=== PATIENT | male | born 1945 | race Caucasian/White ===

== ENCOUNTER 2016-09-24 10:14 | Outpatient (CLI) | payer MEDICARE, OTHER | END 2016-09-24 10:15 | disposition home or self-care (01) | DX: R73.01 Impaired fasting glucose (principal); R97.20 Elevated prostate specific antigen [PSA]; I10 Essential (primary) hypertension; I71.1 Thoracic aortic aneurysm, ruptured; I71.01 Dissection of thoracic aorta ==

== ENCOUNTER 2016-11-15 07:55 | Outpatient (CLI) | payer MEDICARE, OTHER ==
[2016-11-15 11:51] LABS: BASOPHILS % (AUTO) 0.8 %; EOSINOPHILS # (AUTO) 0.2 10^3/uL (0.0-0.7); EOSINOPHILS % (AUTO) 4.2 %; HCT - HEMATOCRIT 37.4 % (42.0-52.0); HGB - HEMOGLOBIN 12.5 g/dL (14.0-18.0); LYMPHOCYTES # (AUTO) 1.3 10^3/uL (1.5-3.5); LYMPHOCYTES % (AUTO) 25.5 %; MEAN CORPUSCULAR HEMOGLOBIN 29.7 pg (27.0-31.0); MEAN CORPUSCULAR HGB CONC 33.5 g/dL (32.0-36.0); MEAN CORPUSCULAR VOLUME 88.6 fL (80.0-94.0); MEAN PLATELET VOLUME 8.7 fL (7.4-11.4); MONOCYTES # (AUTO) 0.4 10^3/uL (0.0-1.0); MONOCYTES % (AUTO) 7.7 %; NEUTROPHILS # (AUTO) 3.3 10^3/uL (1.5-6.6); NEUTROPHILS % (AUTO) 61.8 %; RED BLOOD COUNT 4.22 10^6/uL (4.70-6.10); RED CELL DISTRIBUTION WIDTH 14.4 % (12.0-15.0); UNCORRECTED WHITE BLOOD COUNT 5.3 x10^3/uL; WHITE BLOOD COUNT 5.3 x10^3/uL (4.8-10.8)
[2016-11-15 12:02] LABS: ALBUMIN/GLOBULIN RATIO 1.1 (1.0-2.2); BILIRUBIN,TOTAL 0.7 mg/dL (0.2-1.0); CALCIUM 8.9 mg/dL (8.5-10.3); CREATININE 1.5 mg/dL (0.6-1.2); POTASSIUM 4.2 mmol/L (3.5-5.0); TOTAL PROTEIN 6.6 g/dL (6.7-8.2)
== END 2016-11-15 07:56 | disposition home or self-care (01) ==
LOC: LAB.F 07:55
PROVIDERS: ATTEND Family Medicine
DX: N18.9 Chronic kidney disease, unspecified (principal)
CPT/HCPCS: 36415; 80053; 85025

== ENCOUNTER 2016-12-17 11:26 | Outpatient (CLI) | payer MEDICARE, OTHER ==
[2016-12-17 19:18] LABS: CALCIUM 8.8 mg/dL (8.5-10.3); CREATININE 1.7 mg/dL (0.6-1.2); POTASSIUM 4.3 mmol/L (3.5-5.0)
== END 2016-12-17 11:27 | disposition home or self-care (01) ==
LOC: LAB.F 11:26
PROVIDERS: ATTEND Family Medicine
DX: I10 Essential (primary) hypertension (principal)
CPT/HCPCS: 36415; 80048

== ENCOUNTER 2017-09-26 08:43 | Outpatient (CLI) | payer MEDICARE, OTHER ==
[2017-09-26 18:01] LABS: BASOPHILS # (AUTO) 0.1 10^3/uL (0.0-0.1); BASOPHILS % (AUTO) 1.3 %; EOSINOPHILS # (AUTO) 0.2 10^3/uL (0.0-0.7); EOSINOPHILS % (AUTO) 3.6 %; HGB - HEMOGLOBIN 11.2 g/dL (14.0-18.0); LYMPHOCYTES # (AUTO) 1.1 10^3/uL (1.5-3.5); MEAN CORPUSCULAR HEMOGLOBIN 28.9 pg (27.0-31.0); MEAN CORPUSCULAR HGB CONC 32.3 g/dL (32.0-36.0); MEAN CORPUSCULAR VOLUME 89.5 fL (80.0-94.0); MONOCYTES # (AUTO) 0.4 10^3/uL (0.0-1.0); MONOCYTES % (AUTO) 7.6 %; NEUTROPHILS # (AUTO) 3.2 10^3/uL (1.5-6.6); NEUTROPHILS % (AUTO) 65.5 %; PLT - PLATELET COUNT 159 10^3/uL (130-450); RED BLOOD COUNT 3.89 10^6/uL (4.70-6.10); WHITE BLOOD COUNT 4.9 x10^3/uL (4.8-10.8)
[2017-09-26 18:19] LABS: ALBUMIN/GLOBULIN RATIO 0.9 (1.0-2.2); ALKALINE PHOSPHATASE 67 IU/L (42-121); ALT ALANINE AMINOTRANSFERASE 14 IU/L (10-60); AST ASPARTATE AMINOTRANSFERASE 15 IU/L (10-42); BILIRUBIN,TOTAL 0.8 mg/dL (0.2-1.0); BUN - BLOOD UREA NITROGEN 36 mg/dL (6-20); CALCIUM 8.2 mg/dL (8.5-10.3); CARBON DIOXIDE - CO2 23 mmol/L (21-32); CHLORIDE 107 mmol/L (101-111); CHOL/HDL RATIO 3.7 (<5.0); CHOLESTEROL 176 mg/dL; CREATININE 2.1 mg/dL (0.6-1.2); GFR - MDRD 31 (>89); GLUCOSE 88 mg/dL (70-100); HDL CHOLESTEROL 48 mg/dL; LDL CHOLESTEROL,CALCULATED 119 mg/dL; LDL/HDL RATIO 2.5 (<3.6); SODIUM 139 mmol/L (135-145); TOTAL PROTEIN 6.2 g/dL (6.7-8.2); VLDL CHOLESTEROL 9 mg/dL
== END 2017-09-26 08:44 | disposition home or self-care (01) ==
LOC: LAB.F 08:43
PROVIDERS: ATTEND Family Medicine
DX: I12.9 Hypertensive chronic kidney disease with stage 1 through stage 4 chronic kidney disease, or unspecified chronic kidney disease (principal); N18.3 Chronic kidney disease, stage 3 (moderate); R97.20 Elevated prostate specific antigen [PSA]; R73.01 Impaired fasting glucose; I73.9 Peripheral vascular disease, unspecified
CPT/HCPCS: 36415; 80053; 80061; 83721; 84153; 85025

== ENCOUNTER 2017-10-01 10:55 | Outpatient (CLI) | payer MEDICARE, OTHER ==
[2017-10-01 19:12] LABS: CALCIUM 8.4 mg/dL (8.5-10.3); CREATININE 2.3 mg/dL (0.6-1.2)
[2017-10-01 19:41] LABS: CREATININE,URINE 83.1 mg/dL; PROTEIN/CREATININE RATIO,URINE 2.7 (<=0.2)
== END 2017-10-01 10:56 ==
LOC: LAB.WCP 10:55
PROVIDERS: ATTEND Family Medicine
DX: N18.3 Chronic kidney disease, stage 3 (moderate) (principal)
CPT/HCPCS: 36415; 80048; 82570; 83970; 84156

== ENCOUNTER 2017-10-13 08:17 | Outpatient (CLI) | payer MEDICARE, OTHER ==
--- NOTE | 2017-10-13 10:54 | Ultrasound Report ---
RENAL ULTRASOUND: 10/13/2017 CLINICAL INDICATION: Chronic kidney disease. TECHNIQUE: Real-time scanning was performed with underwriting sales representative static images obtained. FINDINGS: The right kidney measures 14.9 x 6.1 x 6.1 cm. It demonstrates multiple cortical cysts. No hydronephrosis is present. No solid renal mass is seen. The left kidney is surgically absent. Prevoid, the bladder measures 8.5 x 7.6 x 7.3 cm, yielding a prevoid volume of 247 mL. The right ureteral jet is visualized. Postvoid residual is 22 mL. IMPRESSION: RIGHT RENAL CYSTS. CHANGES OF LEFT NEPHRECTOMY. NO SIGNIFICANT POSTVOID RESIDUAL. TD: 10/13/2017 10:48
== END 2017-10-13 08:18 | disposition home or self-care (01) ==
LOC: DI 08:17
PROVIDERS: ATTEND Family Medicine
DX: N18.3 Chronic kidney disease, stage 3 (moderate) (principal); N28.1 Cyst of kidney, acquired; Z90.5 Acquired absence of kidney
CPT/HCPCS: 76770

== ENCOUNTER 2017-10-17 13:21 | Outpatient (CLI) | payer MEDICARE, OTHER ==
[2017-10-17 19:05] LABS: CALCIUM 8.4 mg/dL (8.5-10.3); CREATININE 2.6 mg/dL (0.6-1.2)
== END 2017-10-17 13:22 | disposition home or self-care (01) ==
LOC: LAB.F 13:21
PROVIDERS: ATTEND Family Medicine
DX: N18.3 Chronic kidney disease, stage 3 (moderate) (principal)
CPT/HCPCS: 36415; 80048

== ENCOUNTER 2017-12-04 10:02 | Outpatient (CLI) | payer MEDICARE, OTHER ==
[2017-12-04 17:37] LABS: HGB - HEMOGLOBIN 11.2 g/dL (14.0-18.0); MEAN CORPUSCULAR HEMOGLOBIN 30.3 pg (27.0-31.0); MEAN CORPUSCULAR HGB CONC 32.9 g/dL (32.0-36.0); MEAN CORPUSCULAR VOLUME 92.1 fL (80.0-94.0); MEAN PLATELET VOLUME 9.6 fL (7.4-11.4); RED BLOOD COUNT 3.71 10^6/uL (4.70-6.10); WHITE BLOOD COUNT 5.7 x10^3/uL (4.8-10.8)
[2017-12-04 17:43] LABS: BILIRUBIN,URINE NEGATIVE (NEGATIVE); GLUCOSE, URINE (UA) NEGATIVE (NEGATIVE); KETONES,URINE (UA) NEGATIVE (NEGATIVE); LEUKOCYTE ESTERASE, URINE NEGATIVE (NEGATIVE); NITRITE,URINE NEGATIVE (NEGATIVE); OCCULT BLOOD,URINE MODERATE (NEGATIVE); PROTEIN,URINE 100 mg/dL (NEGATIVE); UROBILINOGEN,URINE 0.2 (NORMAL) E.U./dL (NORMAL)
[2017-12-04 17:45] LABS: CLARITY,URINE CLEAR (CLEAR)
[2017-12-04 18:02] LABS: ALBUMIN 3.2 g/dL (3.2-5.5); ALBUMIN/GLOBULIN RATIO 0.9 (1.0-2.2); BILIRUBIN,TOTAL 0.7 mg/dL (0.2-1.0); CALCIUM 8.6 mg/dL (8.5-10.3); CREATININE 2.7 mg/dL (0.6-1.2); PHOSPHORUS 4.2 mg/dL (2.5-4.6); TOTAL PROTEIN 6.9 g/dL (6.7-8.2); URIC ACID 7.1 mg/dL (2.6-7.2)
[2017-12-04 18:17] LABS: BACTERIA,URINE None Seen /HPF (None Seen); SQUAMOUS EPITHELIAL CELL,UR NONE SEEN (<= Few)
[2017-12-06 14:26] LABS: ANA SCREEN NEGATIVE (NEGATIVE)
== END 2017-12-04 10:03 | disposition home or self-care (01) ==
LOC: LAB.F 10:02
PROVIDERS: ATTEND Physician Assistant Medical
DX: N18.3 Chronic kidney disease, stage 3 (moderate) (principal); R80.9 Proteinuria, unspecified; R31.9 Hematuria, unspecified
CPT/HCPCS: 36415; 80053; 81001; 81003; 81599; 82306; 82550; 83970; 84100; 84550; 85027; 86021; 86038

== ENCOUNTER → 2018-01-21 | Outpatient (CLI) | payer MEDICARE, OTHER ==
[2018-01-21 17:29] LABS: CALCIUM 8.7 mg/dL (8.5-10.3); CREATININE 3.1 mg/dL (0.6-1.2)
== END ==
LOC: LAB.F 08:00
PROVIDERS: ATTEND Physician Assistant Medical
DX: N18.4 Chronic kidney disease, stage 4 (severe) (principal)
CPT/HCPCS: 36415; 80048

== ENCOUNTER 2018-01-28 17:29 | Outpatient (CLI) | payer MEDICARE, OTHER ==
--- NOTE | 2018-01-29 08:55 | Ultrasound Report ---
Reason: RENAL INSUFFICIENCY Procedure Date: 01/28/2018 Accession Number: [id number] / [id number] Procedure: US - Retroperitoneal CPT Code: FULL RESULT: EXAM: RENAL ULTRASOUND EXAM DATE: 01/28/2018 06:54 PM. CLINICAL HISTORY: RENAL INSUFFICIENCY. COMPARISON: None. TECHNIQUE: Real-time scanning was performed with static images obtained. FINDINGS: Right Kidney: 9.4 x 6.5 x 5 cm. Normal echotexture with no stones, contour-deforming solid masses, or hydronephrosis. 2 cysts are present, some 0.4 x 8.5 x 6.3 and 5.2 x 5.9 x 6.2 cm. Left Kidney: Surgically absent. Bladder: Right jet is seen. The prevoid bladder volume was 91.1 cc. The postvoid bladder volume was 8 cc. Other: None. IMPRESSION: Right renal cysts. Status post left nephrectomy. Minimal post void residual. RADIA
== END 2018-01-28 17:30 | disposition home or self-care (01) ==
LOC: DI 17:29
PROVIDERS: ATTEND Physician Assistant Medical
DX: Q61.02 Congenital multiple renal cysts (principal); N28.9 Disorder of kidney and ureter, unspecified
CPT/HCPCS: 76770

== ENCOUNTER 2018-04-08 11:53 | Outpatient (CLI) | payer MEDICARE, OTHER ==
[2018-04-08 18:06] LABS: BASOPHILS % (AUTO) 0.7 %; EOSINOPHILS # (AUTO) 0.2 10^3/uL (0.0-0.7); EOSINOPHILS % (AUTO) 3.8 %; LYMPHOCYTES # (AUTO) 1.3 10^3/uL (1.5-3.5); LYMPHOCYTES % (AUTO) 21.7 %; MEAN CORPUSCULAR HEMOGLOBIN 29.9 pg (27.0-31.0); MEAN CORPUSCULAR HGB CONC 32.8 g/dL (32.0-36.0); MEAN CORPUSCULAR VOLUME 91.2 fL (80.0-94.0); MEAN PLATELET VOLUME 10.1 fL (7.4-11.4); MONOCYTES # (AUTO) 0.5 10^3/uL (0.0-1.0); NEUTROPHILS # (AUTO) 3.8 10^3/uL (1.5-6.6); NEUTROPHILS % (AUTO) 65.8 %; PLT - PLATELET COUNT 148 10^3/uL (130-450); RED BLOOD COUNT 3.68 10^6/uL (4.70-6.10); RED CELL DISTRIBUTION WIDTH 14.6 % (12.0-15.0); WHITE BLOOD COUNT 5.8 x10^3/uL (4.8-10.8)
[2018-04-08 18:39] LABS: ALBUMIN 3.6 g/dL (3.2-5.5); BILIRUBIN,TOTAL 0.6 mg/dL (0.2-1.0); CALCIUM 8.6 mg/dL (8.5-10.3); CREATININE 3.7 mg/dL (0.6-1.2); TOTAL PROTEIN 7.1 g/dL (6.7-8.2)
[2018-04-08 20:15] LABS: CREATININE,URINE 90.3 mg/dL; PROTEIN/CREATININE RATIO,URINE 1.9 (<=0.2)
== END 2018-04-08 11:54 | disposition home or self-care (01) ==
LOC: LAB.F 11:53
PROVIDERS: ATTEND Physician Assistant Medical
DX: N18.4 Chronic kidney disease, stage 4 (severe) (principal); N25.81 Secondary hyperparathyroidism of renal origin; D63.1 Anemia in chronic kidney disease
CPT/HCPCS: 36415; 80053; 82570; 82728; 83540; 84156; 84466; 85025

== ENCOUNTER 2018-05-04 11:23 | Outpatient (CLI) | payer MEDICARE, OTHER ==
[2018-05-04 18:59] LABS: CALCIUM 8.7 mg/dL (8.5-10.3); CREATININE 3.8 mg/dL (0.6-1.2)
== END 2018-05-04 11:24 | disposition home or self-care (01) ==
LOC: LAB.F 11:23
PROVIDERS: ATTEND Internal Medicine Nephrology
DX: N18.4 Chronic kidney disease, stage 4 (severe) (principal); Z90.5 Acquired absence of kidney; R80.9 Proteinuria, unspecified; E87.5 Hyperkalemia; E87.70 Fluid overload, unspecified
CPT/HCPCS: 36415; 80048

== ENCOUNTER 2018-06-25 11:26 | Outpatient (CLI) | payer MEDICARE, OTHER ==
[2018-06-25 18:25] LABS: BILIRUBIN,URINE NEGATIVE (NEGATIVE); GLUCOSE, URINE (UA) NEGATIVE (NEGATIVE); KETONES,URINE (UA) NEGATIVE (NEGATIVE); LEUKOCYTE ESTERASE, URINE NEGATIVE (NEGATIVE); NITRITE,URINE NEGATIVE (NEGATIVE); OCCULT BLOOD,URINE MODERATE (NEGATIVE); PH,URINE 5.5 PH (5.0-7.5); PROTEIN,URINE 30 mg/dL (NEGATIVE); UROBILINOGEN,URINE 0.2 (NORMAL) E.U./dL (NORMAL)
[2018-06-25 18:34] LABS: CLARITY,URINE CLEAR (CLEAR)
[2018-06-25 18:36] LABS: RBC,URINE 0-5 /HPF (0-5)
[2018-06-25 18:37] LABS: BACTERIA,URINE None Seen /HPF (None Seen); SQUAMOUS EPITHELIAL CELL,UR NONE SEEN (<= Few)
[2018-06-25 18:56] LABS: ALBUMIN 3.4 g/dL (3.2-5.5); ALBUMIN/GLOBULIN RATIO 1.1 (1.0-2.2); ALKALINE PHOSPHATASE 64 IU/L (42-121); ALT ALANINE AMINOTRANSFERASE < 10 IU/L (10-60); AST ASPARTATE AMINOTRANSFERASE 12 IU/L (10-42); BILIRUBIN,TOTAL 0.6 mg/dL (0.2-1.0); BUN - BLOOD UREA NITROGEN 46 mg/dL (6-20); CALCIUM 8.6 mg/dL (8.5-10.3); CARBON DIOXIDE - CO2 21 mmol/L (21-32); CHLORIDE 107 mmol/L (101-111); CREATININE 3.6 mg/dL (0.6-1.2); GFR - MDRD 17 (>89); GLUCOSE 80 mg/dL (70-100); SODIUM 137 mmol/L (135-145); TOTAL PROTEIN 6.5 g/dL (6.7-8.2)
== END 2018-06-25 11:27 | disposition home or self-care (01) ==
LOC: LAB.F 11:26
PROVIDERS: ATTEND Family Medicine
DX: N18.4 Chronic kidney disease, stage 4 (severe) (principal); Z90.5 Acquired absence of kidney; R80.9 Proteinuria, unspecified; E87.5 Hyperkalemia; E87.70 Fluid overload, unspecified
CPT/HCPCS: 36415; 80053; 81001; 81003; 83970; 87086

== ENCOUNTER 2018-09-26 10:51 | Outpatient (CLI) | payer MEDICARE, OTHER | END 2018-09-26 10:52 | disposition critical access hospital (66) | LOC: EMS 10:51 | PROVIDERS: ATTEND Surgery | DX: R55 Syncope and collapse (principal) | CPT/HCPCS: A0425; A0427 ==

== ENCOUNTER 2018-09-26 11:17 | Observation (INO) | payer MEDICARE, OTHER ==
[2018-09-26] MEDS ORDERED: SODIUM CHLORIDE 0.9% 1,000 ML IV ONE (11:25)
[2018-09-26 11:43] LABS: BASOPHILS % (AUTO) 0.8 %; EOSINOPHILS # (AUTO) 0.1 10^3/uL (0.0-0.7); EOSINOPHILS % (AUTO) 2.7 %; HGB - HEMOGLOBIN 9.2 g/dL (14.0-18.0); LYMPHOCYTES # (AUTO) 0.9 10^3/uL (1.5-3.5); LYMPHOCYTES % (AUTO) 16.5 %; MEAN CORPUSCULAR HEMOGLOBIN 29.5 pg (27.0-31.0); MEAN CORPUSCULAR HGB CONC 32.9 g/dL (32.0-36.0); MEAN CORPUSCULAR VOLUME 89.7 fL (80.0-94.0); MEAN PLATELET VOLUME 8.2 fL (7.4-11.4); MONOCYTES # (AUTO) 0.4 10^3/uL (0.0-1.0); MONOCYTES % (AUTO) 7.1 %; NEUTROPHILS # (AUTO) 3.9 10^3/uL (1.5-6.6); NEUTROPHILS % (AUTO) 72.9 %; PLT - PLATELET COUNT 100 10^3/uL (130-450); RED BLOOD COUNT 3.11 10^6/uL (4.70-6.10); RED CELL DISTRIBUTION WIDTH 14.4 % (12.0-15.0); WHITE BLOOD COUNT 5.3 x10^3/uL (4.8-10.8)
--- NOTE | 2018-09-26 11:52 | XRAY Report ---
Reason: Chest Pain Procedure Date: 09/26/2018 Accession Number: [id number] / [id number] Procedure: XR - Chest 1 View X-Ray CPT Code: 86216 FULL RESULT: EXAM: CHEST RADIOGRAPHY EXAM DATE: 09/26/2018 11:42 AM. CLINICAL HISTORY: Syncopal episodes. No chest pain. COMPARISON: None. TECHNIQUE: 1 view. FINDINGS: Lungs/Pleura: No focal opacities evident. No pleural effusion. No pneumothorax. Mediastinum: The heart is normal in size. A tortuous thoracic aorta present. Endovascular stent graft material overlies the thoracic aorta. Other: None. IMPRESSION: No acute disease evident. RADIA
[2018-09-26] MEDS ORDERED: ONDANSETRON ODT 4 MG TABLET TL STA (11:55)
[2018-09-26 11:56] LABS: ALBUMIN 3.1 g/dL (3.2-5.5); ALKALINE PHOSPHATASE 61 IU/L (42-121); ALT ALANINE AMINOTRANSFERASE < 10 IU/L (10-60); AST ASPARTATE AMINOTRANSFERASE 10 IU/L (10-42); BILIRUBIN,TOTAL 0.6 mg/dL (0.2-1.0); BUN - BLOOD UREA NITROGEN 68 mg/dL (6-20); CARBON DIOXIDE - CO2 19 mmol/L (21-32); CHLORIDE 107 mmol/L (101-111); CREATININE 4.2 mg/dL (0.6-1.2); GFR - MDRD 14 (>89); GLUCOSE 99 mg/dL (70-100); LIPASE 187 U/L (22-51); MAGNESIUM 2.3 mg/dL (1.7-2.8); PHOSPHORUS 4.1 mg/dL (2.5-4.6); SODIUM 135 mmol/L (135-145); TOTAL PROTEIN 6.1 g/dL (6.7-8.2)
[2018-09-26 12:38] LABS: BILIRUBIN,URINE NEGATIVE (NEGATIVE); GLUCOSE, URINE (UA) NEGATIVE (NEGATIVE); KETONES,URINE (UA) NEGATIVE (NEGATIVE); LEUKOCYTE ESTERASE, URINE NEGATIVE (NEGATIVE); NITRITE,URINE NEGATIVE (NEGATIVE); OCCULT BLOOD,URINE MODERATE (NEGATIVE); PH,URINE 5.5 PH (5.0-7.5); PROTEIN,URINE 100 mg/dL (NEGATIVE); UROBILINOGEN,URINE 0.2 (NORMAL) E.U./dL (NORMAL)
[2018-09-26 12:50] LABS: CLARITY,URINE CLEAR (CLEAR)
[2018-09-26 13:01] LABS: BACTERIA,URINE Rare /HPF (None Seen); RBC,URINE 0-5 /HPF (0-5); SQUAMOUS EPITHELIAL CELL,UR RARE Squamous (<= Few)
--- NOTE | 2018-09-26 13:52 | ED Physician Documentation ---
PD HPI SYNCOPE - Stated complaint Stated Complaint: SYNCOPE - Chief complaint Chief Complaint: Neuro - History obtained from History obtained from: Patient, EMS - History of Present Illness Witnessed: Witnessed Timing - onset: Today Duration: Seconds (30) Preceding symptoms: Light headed. No: Headache, Vision changes, Chest pain, Palpitations, Diaphoresis, Dyspnea, Abdominal pain, Nausea / vomiting, Generalized weakness, Other Associated symptoms: No: Seizure, Incontinant of urine, Incontinant of stool, Headache, Vision changes, Chest pain, Palpitations, Diaphoresis, Dyspnea, Nausea / vomiting, Abdominal pain Contributing factors: No: Recent med change, Decreased PO intake, Noxious stimulae, Emotional upset, Just stood up, Exertion Injury occurred: No: Fell, Head injury, Neck injury, Bit tongue Pain level max: 0 Pain level now: 0 Treatment COAGULATING BATH MIXER: Fluids (normal saline) - Additional information Additional information: 73-year-old male presents to the emergency department after a syncopal event today. He was outside at the car shadow when he sat down on a rock, began to feel lightheaded dizzy and had a syncopal event. Friends caught him. He did not fall. Was unconscious for approximately 30 seconds. Recently taken off his amlodipine for bradycardia. He was however maintained on his carvedilol Review of Systems Ten Systems: 10 systems reviewed and negative Constitutional: denies: Fever Nose: denies: Rhinorrhea / runny nose, Congestion Throat: denies: Sore throat Cardiac: denies: Chest pain / pressure Respiratory: denies: Cough GI: denies: Nausea, Vomiting Skin: denies: Rash Musculoskeletal: denies: Neck pain, Back pain Neurologic: denies: Focal weakness, Numbness, Headache PD PAST MEDICAL HISTORY - Past Medical History Past Medical History: Yes Cardiovascular: Other Other Past Medical History: AAA repair, - Present Medications Home Medications: Ambulatory Orders Medication Instructions Recorded Confirmed Amlodipine Besylate [Norvasc] 10 mg PO DAILY 09/26/18 Carvedilol [Coreg] 3.125 mg PO BID 09/26/18 09/26/18 Citalopram [CeleXA] 20 mg PO DAILY 09/26/18 09/26/18 Furosemide 20 mg PO DAILY 09/26/18 09/26/18 Losartan Potassium 100 mg PO DAILY 09/26/18 09/26/18 Terazosin HCl 10 mg PO QPM 09/26/18 09/26/18 - Allergies Allergies/Adverse Reactions: Allergies Allergy/AdvReac Type Severity Reaction Status Date / Time Penicillins Allergy Mild Hives Verified 09/26/18 11:25 - Social History Does the pt smoke?: No Smoking Status: Never smoker Does the pt drink ETOH?: Yes ETOH Use: Liquor Does the pt have substance abuse?: No PD ED PE NORMAL - Vitals Vital signs reviewed: Yes - General General: Alert and oriented X 3, No acute distress, Well developed/nourished - HEENT HEENT: PERRL, Other (dry lips) - Neck Neck: Supple, no meningeal sign - Cardiac Cardiac: RRR, Strong equal pulses - Respiratory Respiratory: No respiratory distress, Clear bilaterally - Abdomen Abdomen: Normal bowel sounds, Soft, Non tender, Non distended - Derm Derm: Warm and dry, No rash - Extremities Extremities: No edema, No calf tenderness / cord - Neuro Neuro: Alert and oriented X 3 - Psych Psych: Normal mood, Normal affect Results - Vitals Vitals: Vital Signs - 24 hr 09/26/18 09/26/18 09/26/18 11:18 13:28 14:16 Temperature 36.9 C Heart Rate 56 L 55 L 68 Respiratory 22 18 18 Rate Blood Pressure 153/83 H 153/81 H 167/82 H O2 Saturation 98 98 98 Oxygen O2 Source Room air - EKG (time done) 1122 Rate: Rate (enter#) (52) Rhythm: NSR [place]: Anterior hemiblock (LAFB) Intervals: 1st degree AVB QRS: Normal Ischemia: Normal ST segments - Labs Labs: Laboratory Tests 09/26/18 09/26/18 09/26/18 11:39 11:39 11:39 WBC 5.3 RBC 3.11 L Hgb 9.2 L Hct 27.9 L MCV 89.7 MCH 29.5 MCHC 32.9 RDW 14.4 Plt Count 100 L MPV 8.2 Neut # (Auto) 3.9 Lymph # (Auto) 0.9 L [place] # (Auto) 0.4 Eos # (Auto) 0.1 Baso # (Auto) 0.0 Absolute Nucleated RBC 0.00 Nucleated RBC % 0.0 Sodium 135 Potassium 5.5 H Chloride 107 Carbon Dioxide 19 L Anion Gap 9.0 BUN 68 H Creatinine 4.2 H Estimated GFR (MDRD) 14 L Glucose 99 Calcium 8.0 L Phosphorus 4.1 Magnesium 2.3 Total Bilirubin 0.6 AST 10 ALT < 10 L Alkaline Phosphatase 61 Troponin I < 0.04 Total Protein 6.1 L Albumin 3.1 L Globulin 3.0 Albumin/Globulin Ratio 1.0 Lipase 187 H Urine Color Urine Clarity Urine pH Ur Specific [place] Urine Protein Urine Glucose (UA) Urine Ketones Urine Occult Blood Urine Nitrite Urine Bilirubin Urine Urobilinogen Ur Leukocyte Esterase Urine RBC Urine WBC Ur Squamous Epith Cells Urine Bacteria Urine Casts Ur Microscopic Review Urine Culture Comments 09/26/18 12:00 WBC RBC Hgb Hct MCV MCH MCHC RDW Plt Count MPV Neut # (Auto) Lymph # (Auto) [place] # (Auto) Eos # (Auto) Baso # (Auto) Absolute Nucleated RBC Nucleated RBC % Sodium Potassium Chloride Carbon Dioxide Anion Gap BUN Creatinine Estimated GFR (MDRD) Glucose Calcium Phosphorus Magnesium Total Bilirubin AST ALT Alkaline Phosphatase Troponin I Total Protein Albumin Globulin Albumin/Globulin Ratio Lipase Urine Color YELLOW Urine Clarity CLEAR Urine pH 5.5 Ur Specific [place] 1.015 Urine Protein 100 H Urine Glucose (UA) NEGATIVE Urine Ketones NEGATIVE Urine Occult Blood MODERATE H Urine Nitrite NEGATIVE Urine Bilirubin NEGATIVE Urine Urobilinogen 0.2 (NORMAL) Ur Leukocyte Esterase NEGATIVE Urine RBC 0-5 Urine WBC 0-3 Ur Squamous Epith Cells RARE Squamous Urine Bacteria Rare Urine Casts 0-2 Fine Granular Ur Microscopic Review INDICATED Urine Culture Comments NOT INDICATED - Rads (name of study) cxr Radiology: Prelim report reviewed, EMP read contemporaneously, See rad report (no report) PD MEDICAL DECISION MAKING - ED course Complexity details: reviewed results, re-evaluated patient, considered differential, d/w patient ED course: 73-year-old male presents to the emergency department with syncope today. He was mildly bradycardic as well. Likely appears dehydrated with prerenal azotemia. Given IV fluids. He is well-appearing, nontoxic. Afebrile. No chest pain. No arrhythmias on telemetry in the emergency department. Given his worsening creatinine, syncope with out a long prodrome and history of vascular disease including AAA with repair, I feel it is reasonable to watch him in observation, rehydrate him and monitor for arrhythmia. Discussed the case with Dr. Sanchez hospitalist who accepts. This document was made in part using voice recognition software. While efforts are made to proofread this document, sound alike and grammatical errors may occur. Departure - Departure Disposition: ED Place in Observation Clinical Impression: Acute renal insufficiency, Uremia, Hyperkalemia Syncope Qualifiers: Syncope type: unspecified Qualified Code(s): R55 - Syncope and collapse Condition: Stable Discharge Date/Time: 09/26/18 15:20
[2018-09-26] MEDS ORDERED: SODIUM CHLORIDE FLUSH 0.9% 10 ML SYRINGE IVP PRN (14:32)
[2018-09-26] MEDS ORDERED: TEMAZEPAM 15 MG CAPSULE PO PRN (14:32)
[2018-09-26] MEDS ORDERED: HYDROcod/ACETAM 5/325 MG TABLET PO PRN (14:32)
[2018-09-26] MEDS ORDERED: ACETAMINOPHEN 325 MG TABLET PO PRN (14:32)
[2018-09-26] MEDS ORDERED: ONDANSETRON ODT 4 MG TABLET TL PRN (14:32)
[2018-09-26] MEDS ORDERED: hydrALAZINE INJ 20 MG/ML VIAL IVP PRN (14:39)
--- NOTE | 2018-09-26 14:45 | HISTORY & PHYSICAL EXAMINATION ---
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 He was outside at the car shadow when he sat down on a rock, began to feel lightheaded dizzy and had a syncopal event. Friends caught him. He did not fall. Was unconscious for approximately 30 seconds. Recently taken off his amlodipine for bradycardia. He was however maintained on his carvedilol. On initial evaluation patient was alert and oriented with no confusion, no chest pain, no shortness of breath. Patient was hemodynamically stable with a heart rate Of 56 bpm, and initial blood pressure 153/83, nontachypneic non-tachycardic non-hypoxemic afebrile. Patient had 1 L normal saline bolus and heart rate improved to 68 bp m, with blood pressure increasing to 167/82. Patient takes losartan, Coreg, Celexa, as well as terazosin and was recently taken off of Norvasc. Patient relates that back in 2012 he had a endovascular stent graft evaluation for which they were looking for a leak which did not appear to have any types of leaks on CT dated 01/22/2013. 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 On labs review patient had a potassium of 5.5, CO2 of 19, creatinine of 4.2, glucose of 99, WBC 5.3, hemoglobin 9.2, hematocrit 27.9, platelets 100, UA showed no ketones with some hyaline casts, LFTs within normal limits, lipase elevated 187, EKG shows sinus rhythm at 52 bpm with a prolonged ME and left anterior fascicular block, first set of troponin was unremarkable, chest x-ray shows an endovascular stent graft material overlies the thoracic aorta. Patient will be admitted for further evaluation management treatment. History - Past Medical History Cardiovascular: reports: Other Other Past Medical History: AAA repair, Meds/Allgy - Home Medications Home Medications: Ambulatory Orders Medication Instructions Recorded Confirmed Amlodipine Besylate [Norvasc] 10 mg PO DAILY 09/26/18 Carvedilol [Coreg] 3.125 mg PO BID 09/26/18 09/26/18 Citalopram [CeleXA] 20 mg PO DAILY 09/26/18 09/26/18 Furosemide 20 mg PO DAILY 09/26/18 09/26/18 Losartan Potassium 100 mg PO DAILY 09/26/18 09/26/18 Terazosin HCl 10 mg PO QPM 09/26/18 09/26/18 - Allergies Allergies/Adverse Reactions: Allergies Allergy/AdvReac Type Severity Reaction Status Date / Time Penicillins Allergy Mild Hives Verified 09/26/18 11:25 Review of Systems - All Other Systems All Other Systems: reports: Reviewed and negative Prior Level of Functionality: Is independent and ambulatory with independent ADLs Exam - Vital Signs Vital Signs: Vital Signs x48h Temp Pulse Resp BP Pulse Ox 09/26/18 14:16 68 18 167/82 H 98 09/26/18 13:28 55 L 18 153/81 H 98 09/26/18 11:18 36.9 C 56 L 22 153/83 H 98 - Physical Exam General Appearance: positive: No acute distress, Alert Eyes Bilateral: positive: Normal inspection, PERRL, EOMI ENT: positive: ENT inspection nml, Pharynx nml, Dry mucous membranes Neck: positive: Nml inspection, Thyroid nml, No JVD, Trachea midline, Thyromegaly Respiratory: positive: Chest non-tender, No respiratory distress, Breath sounds nml Cardiovascular: positive: Regular rate & rhythm, No murmur, No gallop Abdomen: positive: Non-tender, No organomegaly, Nml bowel sounds, No distention. negative: Tenderness Skin: positive: Color nml, No rash, Warm Extremities: positive: Non-tender, Full ROM, Nml appearance. negative: No pedal edema Neurologic/Psychiatric: positive: Oriented x3, CN's nml (2-12) Conclusion/Plan - Problem List (1) Syncope and collapse Conclusion/Plan: Patient likely had a syncope and collapse secondary to the synergistic effect of Norvasc plus Coreg. Patient was bradycardic on EKG and on initial vital signs. Currently he does not display this symptomatic bradycardia at this point. We will hold off on Coreg and control blood pressures with hydralazine and once he is intravascularly repleted may resume losartan. Will obtain an echocardiogram to visualize for valvular heart disease as well as structural heart disease and ejection fraction. We will also obtain a carotid Doppler to evaluate for carotid artery stenosis. Orthostats to follow. Obtain TSH, magnesium levels as well. (2) Acute renal insufficiency Conclusion/Plan: UA appears to have some hyaline casts, no ketones present, mild metabolic acidosis likely from patient's prerenal azotemia. Will provide IV fluid resuscitation, correct underlying electrolyte disturbances, avoid nephrotoxic agents. Hold Coreg for now and treat blood pressure with IV hydralazine. Patient was previously on losartan and may cause hyperkalemia which is seen on initial labs. HOLD Losartan for now. (3) Hyperkalemia Conclusion/Plan: Patient was on losartan and may have precipitated hyperkalemia as a result. Will hold for now. Continue to monitor trending. IV fluids to continue. (4) Drug-induced hypotension Conclusion/Plan: Likely from combined Norvasc and Coreg use. However, still unclear if this is true iatrogenic hypotension versus orthostatic or Other vascular type causes. We will continue with medical management IV fluid resuscitation, hold Coreg and Norvasc for now. Treat blood pressure with IV hydralazine as needed. IV fluid resuscitation. (5) CKD (chronic kidney disease) stage 4, GFR 15-29 ml/min Conclusion/Plan: We will continue to perfuse kidneys and avoid nephrotoxic agents, correct underlying electrolyte disturbances. Patient should be put on a renal diet. 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 No further complications have arisen other than patient's chronic kidney disease. (7) History of repair of aneurysm of abdominal aorta using endovascular stent graft Conclusion/Plan: Patient had a aneurysm with rupture in 2009 for which he underwent a endovascular stent graft which is clearly seen on chest x-ray with material overlying the thoracic Aorta. 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 Patient receives active yearly surveillance of his AAA graft. Recommendations are to have systolic blood pressure aggressively controlled to avoid shearing forces with a systolic blood pressure less than 140. (8) Anemia in chronic kidney disease (CKD) Conclusion/Plan: We will continue to monitor closely. Patient had a hemoglobin drop from 11-9.0 over 6 months. No active bleeding. Will obtain an iron study, TSH, occult fecal. Qualifiers: Chronic kidney disease stage: stage 4 (severe) Qualified Code(s): N18.4 - Chronic kidney disease, stage 4 (severe); D63.1 - Anemia in chronic kidney disease (9) Abnormal ECG Conclusion/Plan: Patient had a sinus rhythm at 52 bpm with a prolonged ME and left anterior fascicular block. This may be attributable to patient's being on Norvasc and Coreg. However Norvasc was recently discontinued. (10) Advanced care planning/counseling discussion Conclusion/Plan: Patient desires full CODE STATUS. Medical conditions, symptom management and trajectory of illness has been thoroughly discussed and patient will be given medical management throughout hospitalization per - Lab Results Lab results reviewed: Yes Fish Bones: 09/26/18 11:39 09/26/18 11:39 - Diagnostic Imaging Results Diagnostic Imaging Results: positive: Final report reviewed - EKG Results EKG Interpreted Independently: Yes EKG Comparison: Old EKG unavailable Core Measures - Anticipated LOS I expect patient to be DC'd or transferred within 96 hours.: Yes - DVT/VTE - Prophylaxis VTE/DVT Device ordered at admit?: Yes VTE/DVT Prophylaxis med ordered at admit?: No Not Ordered - Medical Reason: Not indicated (Patient is ambulatory) - Stroke - Rehab Assessment Rehab services assessment to be ordered?: No Not Ordered - Medical Reason: Not indicated - AMI - Statin at Admit Aspirin Prescribed on Admit: Yes
[2018-09-26] MEDS ORDERED: ASPIRIN CHEW 81 MG TABLET PO STA (15:01)
[2018-09-26 15:23] LABS: MAGNESIUM 2.3 mg/dL (1.7-2.8)
[2018-09-26] MEDS: SODIUM CHLORIDE 0.9% 1,000 ML IV SCH ×2 (15:57→22:07)
--- NOTE | 2018-09-26 17:41 | Ultrasound Report ---
Reason: Syncope and collapse Procedure Date: 09/26/2018 Accession Number: [id number] / [id number] Procedure: US - Carotid Doppler Complete CPT Code: FULL RESULT: EXAM: BILATERAL CAROTID AND VERTEBRAL ARTERY DUPLEX DOPPLER ULTRASOUND: EXAM DATE: 09/26/2018 05:16 PM CLINICAL HISTORY: Syncope. COMPARISON: None. TECHNIQUE: Grayscale imaging, color Doppler, and duplex spectral Doppler were used to evaluate the carotid and vertebral arteries bilaterally. Static images were obtained. FINDINGS: No significant plaque is identified in the right or left common or internal carotid arteries. Normal antegrade flow is present in bilateral vertebral arteries. VELOCITIES (cm/sec): RIGHT CCA mid: PSV 73 cm/sec CCA dist: PSV 84 cm/sec ICA prox: PSV 66 cm/sec, EDV 16 cm/sec ICA mid: PSV 50 cm/sec, EDV 11 cm/sec ICA dist: PSV 90 cm/sec, EDV 22 cm/sec ECA: PSV 106 cm/sec Vert: PSV 48 cm/sec ICA/CCA: 1.0 LEFT CCA mid: PSV 73 cm/sec CCA dist: PSV 71 cm/sec ICA prox: PSV 64 cm/sec, EDV 17 cm/sec ICA mid: PSV 73 cm/sec, EDV 21 cm/sec ICA dist: PSV 93 cm/sec, EDV 20 cm/sec ECA: PSV 77 cm/sec Vert: PSV 50 cm/sec ICA/CCA: 1.3 ICA diameter stenosis: Right: <50% by velocity and <70% by NASCET criteria. Left: <50% by velocity and <70% by NASCET criteria. IMPRESSION: 1. No significant bilateral carotid artery plaquing. 2. In the right carotid artery there are no elevated carotid artery velocities to suggest hemodynamically significant stenosis. 3. In the left carotid artery there are no elevated carotid artery velocities to suggest hemodynamically significant stenosis. 4. Normal antegrade flow is present in bilateral vertebral arteries. General Recommendations: Stenosis =50% ICA - Follow-up ultrasound 6-12 months Stenosis <50% ICA - High Risk Patient with plaque - Follow-up ultrasound 1-2 years Normal Study but High Risk Patient - Follow-up ultrasound 3-5 years Management recommendations and diagnostic criteria are based on current IAC endorsed standards in Carotid Artery Stenosis: Grayscale and Doppler Ultrasound Diagnosis. Validated velocity measurements with angiographic measurements and velocity criteria are extrapolated from diameter data as defined by the Society of Radiologists in Ultrasound Consensus Conference Radiology 2003; 229;340-346. RADIA
[2018-09-26] MEDS: SODIUM CHLORIDE FLUSH 0.9% 10 ML SYRINGE IVP SCH (18:25)
[2018-09-26] MEDS ORDERED: TERAZOSIN 5 MG CAPSULE PO SCH (21:00)
[2018-09-26] MEDS ORDERED: FAMOTIDINE 20 MG TABLET PO SCH ×2 (21:00)
[2018-09-26] MEDS: amLODIPine 5 MG TABLET PO SCH (21:05)
[2018-09-27] MEDS: SODIUM CHLORIDE 0.9% 1,000 ML IV SCH (04:11)
[2018-09-27] MEDS: SODIUM CHLORIDE FLUSH 0.9% 10 ML SYRINGE IVP SCH ×2 (04:12→09:26)
--- NOTE | 2018-09-27 07:37 | Discharge Plan ---
Discharge Plan Disposition: Home, Self Care Condition: Good Prescriptions: amLODIPine [Norvasc] 5 mg PO BID #60 tablet Losartan Potassium 50 mg PO DAILY #30 tablet Diet: Low Sodium Activity Restrictions: No Restrictions Shower Restrictions: No Driving Restrictions: No Instruction Topics: Aneurysm Abdominal Aortic, Syncope, Syncope Causes, ED Hypotension All Causes Additional Instructions or Follow Up instructions: You were admitted for mild dehydration and symptomatic hypotension as it relates to possible side effects from your BP medications. You hydrated here and adjustments were made to your medications. You will continue with these medications and will have your primary care provider make any additional adjustments as deemed necessary. Your lab work showed you were anemic with mild iron deficiency, Which can be attributable to giving you a lot of fluids. You also were having platelets that were low but this was attributable to non- gastrointestinal bleeding. You had a ultrasound of your carotid arteries which were negative for any conditions. You had a abnormal Electrocardiogram which showed an ECHO which is a test to exam the chambers of your heart. This study was found to be normal in terms of your ejection fraction which is a value of your heart's ability to pump with no structural heart disease. However there is an existing 4.8 cm abdominal aortic aneurysm which may be old however would be prudent to continue your blood pressure medications with the only changes being made was a decrease in your losartan to 50 mg daily instead of 100 mg in addition to cut your Norvasc to 5 mg orally twice daily at the same time to continue with your Coreg and terazosin. You are encouraged to follow-up with Dr. Bello at [facility] at your scheduled appointment time and date. I would encourage that you resume the adjusted blood pressure medications that have been changed for you. Please return to your PCP in 1-2 weeks, You will likely require LABS (a CBC and renal panel) drawn for your next appointment. No Smoking: If you smoke, Please STOP! Call for help. Follow-up with: Luis Brandt MD [Primary Care Provider] - 2 Weeks (Follow up in 1-2 weeks ) Richar Bello DO [Physician No Access] - (To follow-up with your primary tradeshow worker Dr. Richar Bello in [facility] as scheduled)
[2018-09-27 08:09] VITALS: BP 141/80
[2018-09-27] MEDS ORDERED: POLYETHYLENE GLYCOL 3350 17 GM PACKET PO SCH (09:00)
[2018-09-27] MEDS ORDERED: CITALOPRAM 10 MG TABLET PO SCH (09:00)
--- NOTE | 2018-09-27 09:06 | DISCHARGE SUMMARY ---
Discharge Summary Admit Date: 09/26/18 Discharge Date: 09/27/18 Discharging Provider: Dr. Sanchez Primary Care Provider: Luis Brandt Code Status: Attempt Resuscitation Condition at Discharge: Good Discharge Disposition: 01 Home, Self Care - DIAGNOSES Admission Diagnoses: (1) Syncope and collapse (2) Acute renal insufficiency (3) Hyperkalemia (4) Drug-induced hypotension (5) CKD (chronic kidney disease) stage 4, GFR 15-29 ml/min (6) History of nephrectomy, left (7) History of repair of aneurysm of abdominal aorta using endovascular stent graft (8) Anemia in chronic kidney disease (CKD) (9) Abnormal ECG Discharge Diagnoses with Status of Each Condition: (1) Syncope and collapse, Resolved (2) Acute renal insufficiency, Improved (3) Hyperkalemia, Resolved (4) Drug-induced hypotension, Resolved (5) CKD (chronic kidney disease) stage 4, GFR 15-29 ml/min, Stable (6) History of nephrectomy, left, Stable (7) History of repair of aneurysm of abdominal aorta using endovascular stent graft, Stable (8) AAA seen on echocardiogram measuring 4.8 cm, stable (9) Anemia in chronic kidney disease (CKD) (10) Abnormal ECG, Echocardiogram showing no Valvular/structural heart disease, AAA again visualized - HPI History of Present Illness: 73-year-old male With a history of hypertension, left-sided nephrectomy from a tumor resected in 2006, aneurysm rupture with repair in 2009, Anemia of chronic disease, chronic kidney disease stage IV with a baseline creatinine 2.3 at 3.6, presents to the emergency department after a syncopal event today. He was outsi de at the car shadow when he sat down on a rock, began to feel lightheaded dizzy and had a syncopal event. Friends caught him. He did not fall. Was unconscious for approximately 30 seconds. Recently taken off his amlodipine for bradycardia. He was however maintained on his carvedilol. On initial evaluation patient was alert and oriented with no confusion, no chest pain, no shortness of breath. Patient was hemodynamically stable with a heart rate Of 56 bpm, and initial blood pressure 153/83, nontachypneic non-tachycardic non-hypoxemic afebrile. Patient had 1 L normal saline bolus and heart rate improved to 68 bpm, with blood pressure increasing to 167/82. Patient takes losartan, Coreg, Celexa, as well as terazosin and was recently taken off of Norvasc. Patient relates that back in 2012 he had a endovascular stent graft evaluation for which they were looking for a leak which did not appear to have any types of leaks on CT dated 01/22/2013. 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 On labs review patient had a potassium of 5.5, CO2 of 19, creatinine of 4.2, glucose of 99, WBC 5.3, hemoglobin 9.2, hematocrit 27.9, platelets 100, UA s howed no ketones with some hyaline casts, LFTs within normal limits, lipase elevated 187, EKG shows sinus rhythm at 52 bpm with a prolonged IA and left anterior fascicular block, first set of troponin was unremarkable, chest x-ray shows an endovascular stent graft material overlies the thoracic aorta. Patient will be admitted for further evaluation management treatment. - CONSULTS | PROCEDURES Procedures: Echocardiogram shows a preserved ejection fraction with no motion wall abnormality no valvular/structural heart disease. However there was a aortic aneurysm seen at the thoracic level as well as superiorly in the aortic arch level to be measuring 4.8 cm. No dissection noted. Carotid Doppler showed no stenosis or carotid artery disease. 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 Hyperkalemia attributable to acute renal insufficiency with associated mild metabolic acidosis all of which were corrected with aggressive IV fluid resuscitation and correction of underlying electrolyte disturbances. In addition patient was slightly anemic but this was non-GI blood loss or related to his existing AAA likely caused by hemodilution with mild thrombocytopenia. Hemoglobin was decreased to 8.8 g/dL normocytic along with improved creatinine 3.7 upon discharge. Patient had been taken off Norvasc and was continued on Coreg, Celexa, losartan as well as terazosin which in my opinion may have precipitated a drug-induced orthostatic type hypotension event. Chest x-ray was unremarkable as well as a first set of troponin and EKG showed a 52 bpm and prolonged IA with LAFB. His lipase was 187 with no symptoms of epigastric pain. Patient likely has anemia of chronic disease superimposed with mild iron deficiency anemia which showed an iron level of 41 mildly decreased. Echocardiogram showed no overt valvular heart disease or structural heart disease with a preserved ejection fraction. 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 Patient has a appointment with Dr. Bello, Primary fire sprinkler apparatus inspector, at [facility] within 1 week or so and will have this followed up. Meanwhile, We will continue with blood pressure medications at this point would be aggressive to make sure that the systolic blood pressures are less than 140 to prevent overall shearing forces associated with AAA ruptures. Patient will be discharged to continue with oral BP meds however this will be adjusted and continued as outpatient. - ALLERGIES Allergies/Adverse Reactions: Allergies Allergy/AdvReac Type Severity Reaction Status Date / Time Penicillins Allergy Mild Hives Verified 09/26/18 11:25 - MEDICATIONS Home Medications: Ambulatory Orders Medication Instructions Recorded Confirmed Carvedilol [Coreg] 3.125 mg PO BID 09/26/18 09/26/18 Citalopram [CeleXA] 20 mg PO DAILY 09/26/18 09/26/18 Furosemide 20 mg PO DAILY 09/26/18 09/26/18 Terazosin HCl 10 mg PO QPM 09/26/18 09/26/18 Losartan Potassium 50 mg PO DAILY #30 tablet 09/27/18 amLODIPine [Norvasc] 5 mg PO BID #60 tablet 09/27/18 - PHYSICAL EXAM AT DISCHARGE General Appearance: positive: No acute distress, Alert, Mild distress Eyes Bilateral: positive: Normal inspection, PERRL, EOMI ENT: positive: ENT inspection nml, Pharynx nml, No signs of dehydration Neck: positive: Nml inspection, Thyroid nml, No JVD. negative: Trachea midline, Thyromegaly, Carotid bruit Respiratory: positive: Chest non-tender, No respiratory distress, Breath sounds nml Cardiovascular: positive: Regular rate & rhythm, No murmur, No gallop. negative : Irregularly irregular, PMI displaced laterally, JVD present, Systolic murmur, Gallop/S4, Friction rub Peripheral Pulses: positive: 2+ Abdomen: positive: Non-tender, No organomegaly, Nml bowel sounds, No distention. negative: Tenderness Skin: positive: Color nml, No rash, Warm Extremities: positive: Non-tender, Full ROM, Nml appearance Neurologic/Psychiatric: positive: Oriented x3, CN's nml (2-12) - LABS Result Diagrams: 09/27/18 09:15 09/27/18 09:15 - DIAGNOSTIC IMAGING Diagnostic Imaging Results: Final report reviewed - FOLLOW UP Follow Up: Follow-up with PCP in 1 or 2 weeks. To be follow with primary fire sprinkler apparatus inspector Dr. Bello at [facility] within a week or as scheduled - TIME SPENT Time Spent in Discharge (Minutes): 35
[2018-09-27 09:18] LABS: BASOPHILS % (AUTO) 0.8 %; EOSINOPHILS # (AUTO) 0.1 10^3/uL (0.0-0.7); EOSINOPHILS % (AUTO) 3.6 %; HGB - HEMOGLOBIN 8.8 g/dL (14.0-18.0); LYMPHOCYTES # (AUTO) 0.9 10^3/uL (1.5-3.5); LYMPHOCYTES % (AUTO) 22.2 %; MEAN CORPUSCULAR HEMOGLOBIN 29.5 pg (27.0-31.0); MEAN CORPUSCULAR HGB CONC 32.6 g/dL (32.0-36.0); MEAN CORPUSCULAR VOLUME 90.3 fL (80.0-94.0); MEAN PLATELET VOLUME 8.3 fL (7.4-11.4); MONOCYTES # (AUTO) 0.3 10^3/uL (0.0-1.0); MONOCYTES % (AUTO) 7.2 %; NEUTROPHILS # (AUTO) 2.7 10^3/uL (1.5-6.6); NEUTROPHILS % (AUTO) 66.2 %; PLT - PLATELET COUNT 93 10^3/uL (130-450); RED CELL DISTRIBUTION WIDTH 14.4 % (12.0-15.0)
[2018-09-27] MEDS: amLODIPine 5 MG TABLET PO SCH (09:25)
[2018-09-27 09:30] LABS: ALBUMIN 2.9 g/dL (3.2-5.5); CALCIUM 8.1 mg/dL (8.5-10.3); CREATININE 3.7 mg/dL (0.6-1.2)
[2018-09-27 10:01] LABS: CHOL/HDL RATIO 3.1 (<5.0); CHOLESTEROL 116 mg/dL; HDL CHOLESTEROL 38 mg/dL; LDL CHOLESTEROL,CALCULATED 69 mg/dL; LDL/HDL RATIO 1.8 (<3.6); VLDL CHOLESTEROL 9 mg/dL
== END 2018-09-27 10:25 | disposition home or self-care (01) ==
LOC: ED 11:17 → ICU 14:32
PROVIDERS: ADMIT Family Medicine; ATTEND Family Medicine
DX: R55 Syncope and collapse (principal); N28.9 Disorder of kidney and ureter, unspecified; E87.5 Hyperkalemia; E87.2 Acidosis; I95.9 Hypotension, unspecified; I12.9 Hypertensive chronic kidney disease with stage 1 through stage 4 chronic kidney disease, or unspecified chronic kidney disease; N18.4 Chronic kidney disease, stage 4 (severe); D63.1 Anemia in chronic kidney disease; I71.6 Thoracoabdominal aortic aneurysm, without rupture; I72.3 Aneurysm of iliac artery; I44.4 Left anterior fascicular block; R94.31 Abnormal electrocardiogram [ECG] [EKG]; R00.1 Bradycardia, unspecified; D50.9 Iron deficiency anemia, unspecified; D69.6 Thrombocytopenia, unspecified; Z90.5 Acquired absence of kidney; Z95.828 Presence of other vascular implants and grafts; Z79.899 Other long term (current) drug therapy
CPT/HCPCS: 36415; 71045; 80061; 80069; 81001; 83540; 83690; 83735; 84100; 84466; 84484; 85025; 87150; 93005; 93306; 93880; 96360; 96361; 99284; A9270; G0378; Q0162; 80053; 81003; 83721; 84443; 87086

== ENCOUNTER 2018-10-12 10:40 | Outpatient (CLI) | payer MEDICARE, OTHER ==
[2018-10-12 18:44] LABS: BASOPHILS # (AUTO) 0.1 10^3/uL (0.0-0.1); EOSINOPHILS # (AUTO) 0.1 10^3/uL (0.0-0.7); EOSINOPHILS % (AUTO) 2.7 %; HGB - HEMOGLOBIN 10.1 g/dL (14.0-18.0); LYMPHOCYTES # (AUTO) 1.2 10^3/uL (1.5-3.5); LYMPHOCYTES % (AUTO) 22.7 %; MEAN CORPUSCULAR HEMOGLOBIN 29.7 pg (27.0-31.0); MEAN CORPUSCULAR VOLUME 89.9 fL (80.0-94.0); MEAN PLATELET VOLUME 10.1 fL (7.4-11.4); MONOCYTES # (AUTO) 0.4 10^3/uL (0.0-1.0); MONOCYTES % (AUTO) 7.1 %; NEUTROPHILS # (AUTO) 3.5 10^3/uL (1.5-6.6); NEUTROPHILS % (AUTO) 66.5 %; PLT - PLATELET COUNT 136 10^3/uL (130-450); RED BLOOD COUNT 3.41 10^6/uL (4.70-6.10); RED CELL DISTRIBUTION WIDTH 14.6 % (12.0-15.0); WHITE BLOOD COUNT 5.2 x10^3/uL (4.8-10.8)
[2018-10-12 18:59] LABS: ALBUMIN 3.8 g/dL (3.2-5.5); ALBUMIN/GLOBULIN RATIO 1.2 (1.0-2.2); BILIRUBIN,TOTAL 0.6 mg/dL (0.2-1.0); CREATININE 3.6 mg/dL (0.6-1.2)
[2018-10-12 19:00] LABS: PSA FREE 1.238 ng/mL (0.16-2.81)
[2018-10-12 19:01] LABS: PSA TOTAL 3.833 ng/mL (0.000-2.000)
== END 2018-10-12 10:41 | disposition home or self-care (01) ==
LOC: LAB.F 10:40
PROVIDERS: ATTEND Family Medicine
DX: N40.1 Benign prostatic hyperplasia with lower urinary tract symptoms (principal); I12.0 Hypertensive chronic kidney disease with stage 5 chronic kidney disease or end stage renal disease; N18.5 Chronic kidney disease, stage 5; I10 Essential (primary) hypertension; Z12.5 Encounter for screening for malignant neoplasm of prostate; R55 Syncope and collapse
CPT/HCPCS: 36415; 80053; 84153; 84154; 84443; 85025

== ENCOUNTER 2019-01-01 10:29 | Outpatient (CLI) | payer MEDICARE, OTHER ==
[2019-01-01 17:58] LABS: CALCIUM 8.4 mg/dL (8.5-10.3); CREATININE 4.8 mg/dL (0.6-1.2)
== END 2019-01-01 10:30 | disposition home or self-care (01) ==
LOC: LAB.S 10:29
PROVIDERS: ATTEND Family Medicine
DX: N18.9 Chronic kidney disease, unspecified (principal); I73.9 Peripheral vascular disease, unspecified; I10 Essential (primary) hypertension
CPT/HCPCS: 36415; 80048

== ENCOUNTER 2019-01-04 10:10 | Outpatient (CLI) | payer MEDICARE, OTHER ==
[2019-01-04 17:52] LABS: CALCIUM 8.8 mg/dL (8.5-10.3); CREATININE 4.7 mg/dL (0.6-1.2)
== END 2019-01-04 10:11 | disposition home or self-care (01) ==
LOC: LAB.S 10:10
PROVIDERS: ATTEND Family Medicine
DX: E87.5 Hyperkalemia (principal)
CPT/HCPCS: 36415; 80048

== ENCOUNTER 2019-03-25 08:46 | Outpatient (CLI) | payer MEDICARE, OTHER ==
[2019-03-25 17:41] LABS: BASOPHILS # (AUTO) 0.1 10^3/uL (0.0-0.1); BASOPHILS % (AUTO) 0.8 %; EOSINOPHILS # (AUTO) 0.2 10^3/uL (0.0-0.7); EOSINOPHILS % (AUTO) 3.7 %; HGB - HEMOGLOBIN 9.2 g/dL (14.0-18.0); LYMPHOCYTES # (AUTO) 1.7 10^3/uL (1.5-3.5); LYMPHOCYTES % (AUTO) 27.2 %; MEAN CORPUSCULAR HEMOGLOBIN 28.8 pg (27.0-31.0); MEAN CORPUSCULAR HGB CONC 31.7 g/dL (32.0-36.0); MEAN CORPUSCULAR VOLUME 90.9 fL (80.0-94.0); MEAN PLATELET VOLUME 12.4 fL (7.4-11.4); MONOCYTES # (AUTO) 0.5 10^3/uL (0.0-1.0); MONOCYTES % (AUTO) 8.3 %; NEUTROPHILS # (AUTO) 3.8 10^3/uL (1.5-6.6); NEUTROPHILS % (AUTO) 59.8 %; PLT - PLATELET COUNT 183 10^3/uL (130-450); RED BLOOD COUNT 3.19 10^6/uL (4.70-6.10); RED CELL DISTRIBUTION WIDTH 13.5 % (12.0-15.0); WHITE BLOOD COUNT 6.3 x10^3/uL (4.8-10.8)
[2019-03-25 18:54] LABS: ALBUMIN 3.5 g/dL (3.2-5.5); ALKALINE PHOSPHATASE 79 IU/L (42-121); ALT ALANINE AMINOTRANSFERASE 13 IU/L (10-60); AST ASPARTATE AMINOTRANSFERASE 11 IU/L (10-42); BILIRUBIN,TOTAL 0.6 mg/dL (0.2-1.0); CALCIUM 7.5 mg/dL (8.5-10.3); CARBON DIOXIDE - CO2 19 mmol/L (21-32); CHLORIDE 109 mmol/L (101-111); CHOL/HDL RATIO 3.2 (<5.0); CHOLESTEROL 136 mg/dL; CREATININE 6.7 mg/dL (0.6-1.2); GFR - MDRD 8 (>89); GLUCOSE 87 mg/dL (70-100); HDL CHOLESTEROL 43 mg/dL; LDL CHOLESTEROL,CALCULATED 84 mg/dL; SODIUM 139 mmol/L (135-145); TOTAL PROTEIN 7.1 g/dL (6.7-8.2); VLDL CHOLESTEROL 9 mg/dL
[2019-03-25 19:20] LABS: BUN - BLOOD UREA NITROGEN 93 mg/dL (6-20)
== END 2019-03-25 08:47 | disposition home or self-care (01) ==
LOC: LAB.S 08:46
PROVIDERS: ATTEND Family Medicine
DX: I12.9 Hypertensive chronic kidney disease with stage 1 through stage 4 chronic kidney disease, or unspecified chronic kidney disease (principal); N18.9 Chronic kidney disease, unspecified; I73.9 Peripheral vascular disease, unspecified
CPT/HCPCS: 36415; 80053; 80061; 83721; 84443; 85025

== ENCOUNTER 2019-04-11 08:08 | Emergency (ER) | payer MEDICARE, OTHER ==
--- NOTE | 2019-04-11 09:02 | ED Physician Documentation ---
History of Present Illness - Stated complaint Stated Complaint: PORT BLEEDING - Chief complaint Chief Complaint: General - History obtained from History obtained from: Patient - History of Present Illness Timing: How many days ago (2) Pain level max: 0 Pain level now: 0 - Additonal information Additional information: Patient had a dialysis catheter placed in the right upper chest 2 days ago at [facility] in [place]. Started bleeding on Friday and has continued to bleed since that time. He has not contacted his doctor. Does not know who placed it in [place]. Nothing makes it better or worse. Denies any chest pain, shortness of breath or lightheadedness or dizziness with standing. Review of Systems Ten Systems: 10 systems reviewed and negative Constitutional: denies: Fever, Chills Nose: denies: Rhinorrhea / runny nose, Congestion Cardiac: denies: Chest pain / pressure Respiratory: denies: Cough GI: denies: Vomiting, Diarrhea Skin: denies: Rash Musculoskeletal: denies: Neck pain, Back pain Neurologic: denies: Headache PD PAST MEDICAL HISTORY - Past Medical History Cardiovascular: Hypertension, Other Respiratory: None Neuro: Head injury Endocrine/Autoimmune: None GI: None : None Psych: Depression Musculoskeletal: None Derm: None - Past Surgical History General: Appendectomy Cardiovascular: AAA HEENT: Cataracts - Present Medications Home Medications: Ambulatory Orders Medication Instructions Recorded Confirmed Citalopram [CeleXA] 20 mg PO DAILY 09/26/18 09/26/18 Furosemide 20 mg PO DAILY 09/26/18 09/26/18 amLODIPine [Norvasc] 5 mg PO BID #60 tablet 09/27/18 Vit A/Vit C/Vit E/Zinc/Copper 1 each PO 04/11/19 [Preservision Areds Softgel] - Allergies Allergies/Adverse Reactions: Allergies Allergy/AdvReac Type Severity Reaction Status Date / Time Penicillins Allergy Mild Hives Verified 04/11/19 08:23 - Social History Does the pt smoke?: No Smoking Status: Never smoker Does the pt drink ETOH?: Yes Does the pt have substance abuse?: No - Immunizations Immunizations are current?: Yes PD ED PE NORMAL - Vitals Vital signs reviewed: Yes - General General: Alert and oriented X 3, No acute distress, Well developed/nourished - HEENT HEENT: PERRL, Moist mucous membranes - Neck Neck: Supple, no meningeal sign - Cardiac Cardiac: RRR, Strong equal pulses - Respiratory Respiratory: No respiratory distress, Clear bilaterally - Abdomen Abdomen: Soft, Non tender, Non distended - Derm Derm: Warm and dry - Neuro Neuro: Alert and oriented X 3 - Psych Psych: Normal mood, Normal affect - Free text exam Free text exam: Right upper chest wall, dialysis catheter in place. There is a large amount of clot overlying the catheter. This was removed and there is a small trickle of blood. The Biopatch was replaced and a new dressing applied. Results - Vitals Vitals: Vital Signs - 24 hr 04/11/19 04/11/19 08:21 10:40 Temperature 36.7 C Heart Rate 74 74 Respiratory 18 16 Rate Blood Pressure 162/87 H 145/79 H O2 Saturation 99 100 Oxygen O2 Source Room air - Labs Labs: Laboratory Tests 04/11/19 04/11/19 04/11/19 09:02 09:02 09:02 WBC 5.3 RBC 3.07 L Hgb 9.0 L Hct 27.7 L MCV 90.2 MCH 29.3 MCHC 32.5 RDW 13.7 Plt Count 133 MPV 10.9 Neut # (Auto) 3.7 Lymph # (Auto) 0.9 L Swift # (Auto) 0.4 Eos # (Auto) 0.2 Baso # (Auto) 0.0 Absolute Nucleated RBC 0.00 Nucleated RBC % 0.0 PT 12.7 H INR 1.1 Sodium 141 Potassium 3.8 Chloride 110 Carbon Dioxide 18 L Anion Gap 13.0 BUN 91 H* Creatinine 7.4 H* Estimated GFR (MDRD) 7 L Glucose 96 Calcium 7.6 L PD MEDICAL DECISION MAKING - ED course Complexity details: reviewed results, re-evaluated patient, considered differential, d/w patient ED course: There is bleeding from the dialysis catheter insertion site. A weight was placed over the area and left for approximately an hour. Dressing and Biopatch was changed. It was redressed. Observed for another hour in the emergency department with no further bleeding. We will have him follow-up with his doctor for further care. Patient counseled regarding signs and symptoms for which I believe and urgent re-evaluation would be necessary. Patient with good understanding of and agreement to plan and is comfortable going home at this time This document was made in part using voice recognition software. While efforts are made to proofread this document, sound alike and grammatical errors may oc cur. Departure - Departure Disposition: 01 Home, Self Care Clinical Impression: Bleeding Condition: Good Instructions: ED Wound Check Post Op Bleeding Follow-Up: Luis Brandt MD [Primary Care Provider] - Within 3 Days Comments: The site appears to have stopped bleeding. Return if you worsen. Follow-up with your doctor this week for a wound check. Discharge Date/Time: 04/11/19 11:59
[2019-04-11 09:16] LABS: BASOPHILS % (AUTO) 0.8 %; EOSINOPHILS # (AUTO) 0.2 10^3/uL (0.0-0.7); EOSINOPHILS % (AUTO) 3.6 %; LYMPHOCYTES # (AUTO) 0.9 10^3/uL (1.5-3.5); LYMPHOCYTES % (AUTO) 17.3 %; MEAN CORPUSCULAR HEMOGLOBIN 29.3 pg (27.0-31.0); MEAN CORPUSCULAR HGB CONC 32.5 g/dL (32.0-36.0); MEAN CORPUSCULAR VOLUME 90.2 fL (80.0-94.0); MEAN PLATELET VOLUME 10.9 fL (7.4-11.4); MONOCYTES # (AUTO) 0.4 10^3/uL (0.0-1.0); NEUTROPHILS # (AUTO) 3.7 10^3/uL (1.5-6.6); NEUTROPHILS % (AUTO) 71.1 %; PLT - PLATELET COUNT 133 10^3/uL (130-450); RED BLOOD COUNT 3.07 10^6/uL (4.70-6.10); RED CELL DISTRIBUTION WIDTH 13.7 % (12.0-15.0); WHITE BLOOD COUNT 5.3 x10^3/uL (4.8-10.8)
[2019-04-11 09:25] LABS: INR 1.1 (0.8-1.2); PT - PROTHROMBIN TIME 12.7 secs (9.9-12.6)
[2019-04-11 09:30] LABS: CALCIUM 7.6 mg/dL (8.5-10.3)
[2019-04-11 09:31] LABS: CREATININE 7.4 mg/dL (0.6-1.2)
[2019-04-11 10:40] VITALS: BP 145/79
== END 2019-04-11 11:59 | disposition home or self-care (01) ==
LOC: ED 08:08
DX: T82.838A Hemorrhage due to vascular prosthetic devices, implants and grafts, initial encounter (principal); I10 Essential (primary) hypertension
CPT/HCPCS: 36415; 80048; 85025; 85610; 99283

== ENCOUNTER 2020-07-05 10:10 | Outpatient (CLI) | payer MEDICARE, OTHER | END 2020-07-05 23:59 | disposition home or self-care (01) | LOC: COV 10:10 | PROVIDERS: ATTEND Family Medicine | DX: Z20.822 Contact with and (suspected) exposure to COVID-19 (principal) ==

== ENCOUNTER 2020-09-08 07:35 | Outpatient (CLI) | payer MEDICARE, OTHER ==
[2020-09-08 15:56] LABS: BASOPHILS # (AUTO) 0.1 10^3/uL (0.0-0.1); EOSINOPHILS # (AUTO) 0.3 10^3/uL (0.0-0.7); EOSINOPHILS % (AUTO) 5.3 %; HGB - HEMOGLOBIN 10.1 g/dL (14.0-18.0); LYMPHOCYTES # (AUTO) 1.2 10^3/uL (1.5-3.5); LYMPHOCYTES % (AUTO) 23.8 %; MEAN CORPUSCULAR HGB CONC 30.6 g/dL (32.0-36.0); MEAN CORPUSCULAR VOLUME 97.9 fL (80.0-94.0); MEAN PLATELET VOLUME 11.8 fL (7.4-11.4); MONOCYTES # (AUTO) 0.4 10^3/uL (0.0-1.0); MONOCYTES % (AUTO) 7.7 %; NEUTROPHILS # (AUTO) 3.1 10^3/uL (1.5-6.6); NEUTROPHILS % (AUTO) 61.8 %; PLT - PLATELET COUNT 136 10^3/uL (130-450); RED BLOOD COUNT 3.37 10^6/uL (4.70-6.10); RED CELL DISTRIBUTION WIDTH 15.6 % (12.0-15.0); WHITE BLOOD COUNT 5.1 x10^3/uL (4.8-10.8)
[2020-09-08 16:24] LABS: ALBUMIN 3.2 g/dL (3.2-5.5); ALKALINE PHOSPHATASE 54 IU/L (42-121); ALT ALANINE AMINOTRANSFERASE < 10 IU/L (10-60); AST ASPARTATE AMINOTRANSFERASE 11 IU/L (10-42); BILIRUBIN,TOTAL 0.7 mg/dL (0.2-1.0); BUN - BLOOD UREA NITROGEN 41 mg/dL (6-20); CARBON DIOXIDE - CO2 28 mmol/L (21-32); CHLORIDE 105 mmol/L (101-111); CHOL/HDL RATIO 2.7 (<5.0); CHOLESTEROL 149 mg/dL; GFR - MDRD 6 (>89); GLUCOSE 100 mg/dL (70-100); HDL CHOLESTEROL 55 mg/dL; LDL CHOLESTEROL,CALCULATED 83 mg/dL; LDL/HDL RATIO 1.5 (<3.6); POTASSIUM 4.2 mmol/L (3.5-5.0); SODIUM 143 mmol/L (135-145); THYROID STIMULATING HORMONE 1.91 uIU/mL (0.34-5.60); TOTAL PROTEIN 6.3 g/dL (6.7-8.2); TRIGLYCERIDES 55 mg/dL; VLDL CHOLESTEROL 11 mg/dL
[2020-09-08 16:39] LABS: CREATININE 8.1 mg/dL (0.6-1.2)
== END 2020-09-08 07:36 | disposition home or self-care (01) ==
LOC: LAB.S 07:35
PROVIDERS: ATTEND Family Medicine
DX: E29.1 Testicular hypofunction (principal); I10 Essential (primary) hypertension
CPT/HCPCS: 36415; 80053; 80061; 83721; 84153; 84403; 84443; 85025

== ENCOUNTER 2022-06-12 10:17 | Outpatient (CLI) | payer MEDICARE, OTHER ==
[2022-06-12 14:14] LABS: BASOPHILS # (AUTO) 0.1 10^3/uL (0.0-0.1); BASOPHILS % (AUTO) 1.1 %; EOSINOPHILS # (AUTO) 0.2 10^3/uL (0.0-0.7); EOSINOPHILS % (AUTO) 3.5 %; HCT - HEMATOCRIT 39.5 % (42.0-52.0); HGB - HEMOGLOBIN 12.2 g/dL (14.0-18.0); LYMPHOCYTES # (AUTO) 1.5 10^3/uL (1.5-3.5); LYMPHOCYTES % (AUTO) 27.4 %; MEAN CORPUSCULAR HEMOGLOBIN 27.7 pg (27.0-31.0); MEAN CORPUSCULAR HGB CONC 30.9 g/dL (32.0-36.0); MEAN CORPUSCULAR VOLUME 89.6 fL (80.0-94.0); MEAN PLATELET VOLUME 11.5 fL (7.4-11.4); MONOCYTES # (AUTO) 0.7 10^3/uL (0.0-1.0); MONOCYTES % (AUTO) 12.7 %; NEUTROPHILS % (AUTO) 54.9 %; PLT - PLATELET COUNT 177 10^3/uL (130-450); RED BLOOD COUNT 4.41 10^6/uL (4.70-6.10); RED CELL DISTRIBUTION WIDTH 16.8 % (12.0-15.0); WHITE BLOOD COUNT 5.4 x10^3/uL (4.8-10.8)
[2022-06-12 16:19] LABS: ALBUMIN 2.9 g/dL (3.2-5.5); ALBUMIN/GLOBULIN RATIO 0.7 (1.0-2.2); ALKALINE PHOSPHATASE 70 IU/L (42-121); ALT ALANINE AMINOTRANSFERASE 10 IU/L (10-60); AST ASPARTATE AMINOTRANSFERASE < 10 IU/L (10-42); BILIRUBIN,TOTAL 0.5 mg/dL (0.2-1.0); BUN - BLOOD UREA NITROGEN 59 mg/dL (6-20); CALCIUM 10.3 mg/dL (8.5-10.3); CARBON DIOXIDE - CO2 33 mmol/L (21-32); CHLORIDE 94 mmol/L (101-111); CHOL/HDL RATIO 3.1 (<5.0); CHOLESTEROL 178 mg/dL; GFR - MDRD 4 (>89); GLUCOSE 101 mg/dL (70-100); HDL CHOLESTEROL 57 mg/dL; LDL CHOLESTEROL,CALCULATED 107 mg/dL; LDL/HDL RATIO 1.9 (<3.6); POTASSIUM 4.1 mmol/L (3.5-5.0); SODIUM 136 mmol/L (135-145); TOTAL PROTEIN 6.9 g/dL (6.7-8.2); TRIGLYCERIDES 71 mg/dL; VLDL CHOLESTEROL 14 mg/dL
[2022-06-12 16:33] LABS: THYROID STIMULATING HORMONE 6.67 uIU/mL (0.34-5.60)
[2022-06-12 16:36] LABS: CREATININE 11.4 mg/dL (0.6-1.2)
[2022-06-12 17:25] LABS: FREE T4 (FREE THYROXINE) 1.36 ng/dL (0.58-1.64)
[2022-06-12 20:24] LABS: ESTIMATED AVERAGE GLUCOSE 117 mg/dL (70-100); HEMOGLOBIN A1c% 5.7 % (4.27-6.07)
== END 2022-06-12 10:18 | disposition home or self-care (01) ==
LOC: LAB.S 10:17
PROVIDERS: ATTEND Internal Medicine
DX: I10 Essential (primary) hypertension (principal); I73.9 Peripheral vascular disease, unspecified; R73.01 Impaired fasting glucose; Z91.89 Other specified personal risk factors, not elsewhere classified
CPT/HCPCS: 36415; 80053; 80061; 83036; 83721; 84439; 84443; 85025

== ENCOUNTER 2023-03-29 10:39 | Emergency (ER) | payer MEDICARE, OTHER ==
[2023-03-29 11:01] VITALS: BP 147/56; O2SAT 100
[2023-03-29] MEDS ORDERED: oxyCODONE 5 MG TABLET PO STA (11:39)
--- NOTE | 2023-03-29 11:40 | ED Physician Documentation ---
PD HPI LOWER EXT INJURY - Stated complaint Stated Complaint: GLF - Chief complaint Chief Complaint: Ext Problem - History obtained from History obtained from: Patient - Additional information Additional information: 78-year-old gentleman on dialysis, emergency department coordinator is Dr. Lin, gets dialysis on Friday, Friday, and Friday. Also history of AAA and bypass. He was at the grocery store last evening and tripped on something with his left foot and then twisted his left knee and landed on his left hip. The knee is the most painful. He is able to walk and bear weight but only with support. He took an oxycodone this morning which was helpful and requests another. No other injuries. No head or neck injury. PD PAST MEDICAL HISTORY - Past Medical History Cardiovascular: Hypertension, Other Respiratory: None Neuro: Head injury Endocrine/Autoimmune: None GI: None : None Psych: Depression Musculoskeletal: None Derm: None Other Past Medical History: Patient reports, just placed on the kidney transplant list. - Past Surgical History General: Appendectomy Cardiovascular: AAA HEENT: Cataracts - Present Medications Home Medications: Ambulatory Orders Medication Instructions Recorded Confirmed Citalopram [CeleXA] 20 mg PO DAILY 09/26/18 03/29/23 Furosemide 20 mg PO DAILY 09/26/18 03/29/23 amLODIPine [Norvasc] 5 mg PO BID #60 tablet 09/27/18 03/29/23 Vit A/Vit C/Vit E/Zinc/Copper 1 each PO DAILY PM 04/11/19 03/29/23 [Preservision Areds Softgel] oxyCODONE [Roxicodone] 5 mg PO Q4-6H PRN #15 tablet 03/29/23 - Allergies Allergies/Adverse Reactions: Allergies Allergy/AdvReac Type Severity Reaction Status Date / Time Penicillins Allergy Mild Hives Verified 03/29/23 11:04 - Social History Does the pt smoke?: No Smoking Status: Never smoker Does the pt drink ETOH?: Yes Does the pt have substance abuse?: No - Immunizations Immunizations are current?: Yes - POLST Patient has POLST: No PD ED PE NORMAL - Vitals Vital signs reviewed: Yes - General General: Alert and oriented X 3, No acute distress - Neck Neck: Supple, no meningeal sign, No bony TTP - Extremities Extremities: Other (He is getting diffusely tender on the left knee which is also swollen and slightly bruised. Left hip is minimally tender laterally, no pain with internal and external rotation of the left hip. There is a bruise on the medial part of the right knee but that is nontender with full range of motion.) - Neuro Neuro: Alert and oriented X 3, Normal speech Eye Opening: Spontaneous Motor: Obeys Commands Verbal: Oriented GCS Score: 15 - Psych Psych: Normal mood, Normal affect Results - Vitals Vitals: Vital Signs - 24 hr 03/29/23 10:49 Temperature 36.7 C Heart Rate 51 L Respiratory 16 Rate Blood Pressure 147/56 H O2 Saturation 100 Oxygen O2 Source Room air - Rads (name of study) X-rays of the left hip and knee were negative Relevant Findings:: Final report received, EMP independent interpretation of test PD Medical Decision Making - ED course ED course: X-rays of the left hip and knee were negative for fracture. After that we got him up and he was walking albeit slowly with a walker without obvious limp. No overt pain when doing that. Departure - Departure Disposition: 01 Home, Self Care Clinical Impression: Contusion of left hip Qualifiers: Encounter type: initial encounter Qualified Code(s): S70.02XA - Contusion of left hip, initial encounter Left knee sprain Qualifiers: Encounter type: initial encounter Involved ligament of knee: lateral collateral ligament Qualified Code(s): S83.422A - Sprain of lateral collateral ligament of left knee, initial encounter Condition: Good Record reviewed to determine appropriate education?: Yes Instructions: ED Sprain Knee Prescriptions: oxyCODONE [Roxicodone] 5 mg PO Q4-6H PRN #15 tablet PRN Reason: Pain Comments: When pain is mild you can take Tylenol. Given your underlying health problems avoid ibuprofen/Motrin/Advil/Aleve/naproxen. Return for new or worsening symptoms. Follow-up with your doctor in a week if not improving as expected. I sent your prescription electronically to the [facility] drug in [place]. I am prescribing a short course of narcotic pain medication for you. These are potentially dangerous and addictive medications that should be used carefully. These medications may constipate you. Take an [id number] stool softener (docusate) twice daily with plenty of water while taking these medications. If you go 24 hours without a bowel movement, take [id number] miralax, per package instructions. Do not drink or drive while taking these medications. If you received narcotic or sedating medications while in the emergency department, do not drive for 24 hours. Store this medication in a safe, secure place and out of reach of children. It is a violation of federal law to give or sell this medication to another person or to use in a manner other than prescribed. The ED will not refill narcotic prescriptions, including prescriptions lost or stolen. To dispose of unwanted medications: 1. [facility] provides a drop box for medication in pill form only (no liquids) 8:00 am to 4:30 p.m. Friday-Friday in the lobby of the [facility] [place], [address] Empty pills into ziplock bag before disposal. Call [phone] for information. 2.[employer] is a free service available to all [facility] residents. Go to [email or web address] Note that many narcotic pain relievers also contain Tylenol/acetaminophen. Please ensure that your total dose of acetaminophen from all sources does not exceed 3 g (3000 mg) per day.
--- NOTE | 2023-03-29 12:09 | XRAY Report ---
PROCEDURE: Hip w/Pelvis 2-3V LT INDICATIONS: hip inj TECHNIQUE: AP pelvis with lateral view(s) of the left hip(s). COMPARISON: None. FINDINGS: Bones: No fractures or dislocations. No suspicious bony lesions. Soft tissues: No suspicious soft tissue calcifications or masses. IMPRESSION: No acute fracture. No osseous lesion. If symptoms and/or clinical suspicion for pathology continue, f urther assessment with repeat plain films, or advanced imaging (e.g., CT, MRI, or bone scan) is recom mended for further assessment. Reviewed by: Pam Guzman MD on 03/29/2023 12:08 PM PDT Approved by: Pam Guzman MD on 03/29/2023 12:08 PM PDT Station ID: [id number]
--- NOTE | 2023-03-29 12:21 | XRAY Report ---
PROCEDURE: Knee 4 View LT INDICATIONS: knee inj TECHNIQUE: 4 views of the knee(s) were acquired. COMPARISON: None. FINDINGS: Bones: No fractures or dislocations. No suspicious bony lesions. Soft tissues: No knee joint effusion. No suspicious soft tissue calcifications or masses. IMPRESSION: No acute fracture. No osseous lesion. If symptoms and/or clinical suspicion for pathology continue, f urther assessment with repeat plain films, or advanced imaging (e.g., CT, MRI, or bone scan) is recom mended for further assessment. Reviewed by: Pam Guzman MD on 03/29/2023 12:19 PM PDT Approved by: Pam Guzman MD on 03/29/2023 12:19 PM PDT Station ID: [id number]
== END 2023-03-29 12:59 | disposition home or self-care (01) ==
LOC: ED 10:39
DX: S83.422A Sprain of lateral collateral ligament of left knee, initial encounter (principal); S70.02XA Contusion of left hip, initial encounter; W01.0XXA Fall on same level from slipping, tripping and stumbling without subsequent striking against object, initial encounter; Y92.512 Supermarket, store or market as the place of occurrence of the external cause; I12.0 Hypertensive chronic kidney disease with stage 5 chronic kidney disease or end stage renal disease; N18.6 End stage renal disease; Z99.2 Dependence on renal dialysis; Z79.899 Other long term (current) drug therapy
CPT/HCPCS: 73502; 73564; 99283; 99284; A9270

== ENCOUNTER 2023-06-15 17:09 | Emergency (ER) | payer MEDICARE, OTHER ==
--- NOTE | 2023-06-15 18:16 | ED Physician Documentation ---
PD HPI ABD PAIN - Stated complaint Stated Complaint: LOWER BACK/ABD PX/VOMIT - Chief complaint Chief Complaint: Abd Pain - History obtained from History obtained from: Patient - Additional information Additional information: 78-year-old gentleman with history of dialysis dependence Friday and Friday, his organic search lead is Dr. Crawford in [place], aortic aneurysm repair as well as a thoracic aortic aneurysm repair, remote appendectomy and left nephrectomy for kidney cancer scare 20 years ago. He developed right flank pain that was mild last night associate with some nausea and 2 episodes of vomiting. Now has some pelvic pain. PD PAST MEDICAL HISTORY - Past Medical History Past Medical History: Yes Cardiovascular: Hypertension, Other Respiratory: None Neuro: Head injury Endocrine/Autoimmune: None GI: None : Dialysis Psych: Depression Musculoskeletal: None Derm: None - Past Surgical History Past Surgical History: Yes General: Appendectomy Cardiovascular: AAA HEENT: Cataracts - Present Medications Home Medications: Ambulatory Orders Medication Instructions Recorded Confirmed Citalopram [CeleXA] 20 mg PO DAILY 09/26/18 06/15/23 Furosemide 20 mg PO DAILY 09/26/18 06/15/23 amLODIPine [Norvasc] 5 mg PO BID #60 tablet 09/27/18 06/15/23 Aspirin Chewable [St Mike 81 mg PO DAILY 06/15/23 06/15/23 Aspirin] Losartan [Cozaar] 50 mg PO DAILY 06/15/23 06/15/23 Metoprolol Succinate [Kapspargo 25 mg PO DAILY 06/15/23 06/15/23 Sprinkle] Tamsulosin HCl [Flomax] 1 cap PO DAILY 06/15/23 06/15/23 - Allergies Allergies/Adverse Reactions: Allergies Allergy/AdvReac Type Severity Reaction Status Date / Time Penicillins Allergy Mild Hives Verified 06/15/23 17:34 - Social History Does the pt smoke?: No Smoking Status: Never smoker Does the pt drink ETOH?: Yes Does the pt have substance abuse?: No - Immunizations Immunizations are current?: Yes - POLST Patient has POLST: No PD ED PE NORMAL - Vitals Vital signs reviewed: Yes - General General: Alert and oriented X 3, No acute distress - Neck Neck: Supple, no meningeal sign - Cardiac Cardiac: RRR, No murmur - Respiratory Respiratory: No respiratory distress, Clear bilaterally - Abdomen Abdomen: Other (Diminished but not absent bowel sounds, he does have an abdominal bruit, no tenderness.) - Back Back: No spinal TTP - Derm Derm: Normal color, Warm and dry - Neuro Neuro: Alert and oriented X 3, Normal speech Results - Vitals Vitals: Vital Signs - 24 hr 06/15/23 06/15/23 06/15/23 17:28 19:30 21:05 Temperature 36.8 C 36.6 C Heart Rate 74 69 72 Respiratory 20 18 16 Rate Blood Pressure 134/85 H 117/83 H 151/70 H O2 Saturation 100 99 97 Oxygen O2 Source Room air - Labs Labs: Laboratory Tests 06/15/23 06/15/23 06/15/23 18:21 18:21 18:21 WBC 6.7 RBC 4.53 L Hgb 13.4 L Hct 40.7 L MCV 89.8 MCH 29.6 MCHC 32.9 RDW 15.9 H Plt Count 171 MPV 10.1 Neut # (Auto) 4.6 Lymph # (Auto) 1.4 L Ocean # (Auto) 0.6 Eos # (Auto) 0.1 Baso # (Auto) 0.0 Absolute Nucleated RBC 0.00 Nucleated RBC % 0.0 PT 11.5 INR 1.1 Sodium 137 Potassium 5.2 H Chloride 91 L Carbon Dioxide 32 Anion Gap 14.0 H BUN 57 H Creatinine 8.8 H* Estimated GFR (MDRD) 6 L Glucose 103 Calcium 10.6 H Total Bilirubin 0.8 AST 12 ALT 13 Alkaline Phosphatase 94 Total Protein 7.6 Albumin 4.1 Globulin 3.5 Albumin/Globulin Ratio 1.2 Lipase 40 Nasal Adenovirus (PCR) Nasal B. parapertussis DNA (PCR) Nasal Coronavir 229E PCR Nasal Coronavir HKU1 PCR Nasal Coronavir NL63 PCR Nasal Coronavir OC43 PCR Nasal Enterovir/Rhinovir PCR Nasal Influenza B PCR Nasal Influenza A PCR Nasal Parainfluen 1 PCR Nasal Parainfluen 2 PCR Nasal Parainfluen 3 PCR Nasal Parainfluen 4 PCR Nasal RSV (PCR) Nasal B.pertussis DNA PCR Nasal C.pneumoniae (PCR) Naveed Human Metapneumo PCR Nasal M.pneumoniae (PCR) Nasal SARS-CoV-2 (PCR) 06/15/23 18:46 WBC RBC Hgb Hct MCV MCH MCHC RDW Plt Count MPV Neut # (Auto) Lymph # (Auto) Ocean # (Auto) Eos # (Auto) Baso # (Auto) Absolute Nucleated RBC Nucleated RBC % PT INR Sodium Potassium Chloride Carbon Dioxide Anion Gap BUN Creatinine Estimated GFR (MDRD) Glucose Calcium Total Bilirubin AST ALT Alkaline Phosphatase Total Protein Albumin Globulin Albumin/Globulin Ratio Lipase Nasal Adenovirus (PCR) NOT DETECTED Nasal B. parapertussis DNA (PCR) NOT DETECTED Nasal Coronavir 229E PCR NOT DETECTED Nasal Coronavir HKU1 PCR NOT DETECTED Nasal Coronavir NL63 PCR NOT DETECTED Nasal Coronavir OC43 PCR NOT DETECTED Nasal Enterovir/Rhinovir PCR NOT DETECTED Nasal Influenza B PCR NOT DETECTED Nasal Influenza A PCR NOT DETECTED Nasal Parainfluen 1 PCR NOT DETECTED Nasal Parainfluen 2 PCR NOT DETECTED Nasal Parainfluen 3 PCR NOT DETECTED Nasal Parainfluen 4 PCR NOT DETECTED Nasal RSV (PCR) NOT DETECTED Nasal B.pertussis DNA PCR NOT DETECTED Nasal C.pneumoniae (PCR) NOT DETECTED Naveed Human Metapneumo PCR NOT DETECTED Nasal M.pneumoniae (PCR) NOT DETECTED Nasal SARS-CoV-2 (PCR) NOT DETECTED - Rads (name of study) CT KUB (no contrast) Relevant Findings:: Final report received ( ), EMP independent interpretation of test PD Medical Decision Making - ED course ED course: 78-year-old gentleman with multiple comorbidities as above, not the least of which are dialysis dependence and severe vascular disease presents with abdominal pain and bloating. Went over for CT and on my "wet read" of his CT he has a small bowel obstruction. Because of his comorbidities he will need to be transferred to a higher level of care. Will place an NG tube and give him just a trickle of D5 half-normal saline at 50 mL an hour for maintenance fluids. D iscussed with patient that there may be significant delays to transfer to a higher level of care because of significant hospital capacity issues in the region. CT KUB: Small bowel obstruction. Fluid-filled proximal small bowel measures up to combination distal small bowel is decompressed. Probable transition in the left lower quadrant. Solitary right kidney. Hepatorenal cysts. Lateral to the right renal calculi. No hydronephrosis. Fusiform abdominal aortic aneurysm measures 5.5 cm the level of the SMA. Aortic stent graft extends from the thoracic aorta to the level of the SMA. Case discussed by phone with Dr. Garcia, general surgery at [facility] at 9:25 PM who defers to medicine for admission which is not unreasonable but will try to get her hospitalist colleague on the phone for us. Care to Dr. Alvarado at 10 PM shift change pending callback from [facility] hospitalist. Departure - Departure Disposition: 02 Transfer Acute Care Hosp Clinical Impression: History of repair of aneurysm of abdominal aorta using endovascular stent graft, History of nephrectomy, left, Dialysis patient, SBO (small bowel obstruction) Condition: Serious Forms: PCP List
[2023-06-15 18:26] LABS: BASOPHILS % (AUTO) 0.6 %; EOSINOPHILS # (AUTO) 0.1 10^3/uL (0.0-0.7); EOSINOPHILS % (AUTO) 1.2 %; HCT - HEMATOCRIT 40.7 % (42.0-52.0); HGB - HEMOGLOBIN 13.4 g/dL (14.0-18.0); LYMPHOCYTES # (AUTO) 1.4 10^3/uL (1.5-3.5); LYMPHOCYTES % (AUTO) 20.5 %; MEAN CORPUSCULAR HEMOGLOBIN 29.6 pg (27.0-31.0); MEAN CORPUSCULAR HGB CONC 32.9 g/dL (32.0-36.0); MEAN CORPUSCULAR VOLUME 89.8 fL (80.0-94.0); MEAN PLATELET VOLUME 10.1 fL (7.4-11.4); MONOCYTES # (AUTO) 0.6 10^3/uL (0.0-1.0); MONOCYTES % (AUTO) 8.7 %; NEUTROPHILS # (AUTO) 4.6 10^3/uL (1.5-6.6); NEUTROPHILS % (AUTO) 68.9 %; PLT - PLATELET COUNT 171 10^3/uL (130-450); RED BLOOD COUNT 4.53 10^6/uL (4.70-6.10); RED CELL DISTRIBUTION WIDTH 15.9 % (12.0-15.0); WHITE BLOOD COUNT 6.7 x10^3/uL (4.8-10.8)
[2023-06-15 18:33] LABS: INR 1.1 (0.8-1.2); PT - PROTHROMBIN TIME 11.5 secs (9.9-12.6)
[2023-06-15 18:39] LABS: ALBUMIN 4.1 g/dL (3.2-5.5)
[2023-06-15 18:49] LABS: ALBUMIN/GLOBULIN RATIO 1.2 (1.0-2.2); BILIRUBIN,TOTAL 0.8 mg/dL (0.2-1.0); CALCIUM 10.6 mg/dL (8.5-10.3); CREATININE 8.8 mg/dL (0.6-1.3); POTASSIUM 5.2 mmol/L (3.5-4.5); TOTAL PROTEIN 7.6 g/dL (6.4-8.9)
[2023-06-15] MEDS ORDERED: DEXTROSE 5%-0.45% NACL 1,000 ML IV SCH (19:00)
--- NOTE | 2023-06-15 19:06 | CT Report ---
PROCEDURE: Abdomen/Pelvis WO INDICATIONS: abd pain TECHNIQUE: Helical axial CT of the abdomen and pelvis was obtained without intravenous contrast and reformatted in multiple planes. Radiation dose reduction was achieved utilizing automated exposure co ntrol or adjustment of mA and/or kV according to patient size. COMPARISON: None. FINDINGS: Lower thorax: The lung bases are clear. Heart size normal. No hiatal hernia. Large fusiform thoraci c aortic aneurysm with endovascular stent graft extends into the upper thoracic aorta and terminates at the level of the SMA. Liver: Normal in size and attenuation. No contour deformity present. Hepatic cysts measure up to 6.7 cm Biliary system: Cholelithiasis. No pericholecystic inflammatory change Pancreas: Unremarkable without mass or inflammation evident. Spleen: Normal in size and density. Adrenals: Normal morphology and density. Reproductive system: Unremarkable as visualized. Urinary system: Solitary right kidney. Multiple right renal cysts measure up to 8.6 cm. Multifocal re nal calculi measure up to 6.50 cm. No hydronephrosis. Gastrointestinal system: Dilated proximal fluid-filled small bowel measures up to 4.5 cm in diameter . Distal small bowel is completely decompressed transition appears to be in the left lower quadrant Appendix: No findings to suggest acute appendicitis. Peritoneal spaces: No mesenteric or retroperitoneal adenopathy. No free air. No free fluid. Vasculature: As above. Fusiform aortic aneurysm level of the SMA measures 5.5 x 1.5 cm and extends i nferiorly to the bifurcation where there is a 3.4 cm diameter. Both iliac vessels also show aneurysma l dilatation measuring up to 2.7 cm on the left Abdominal wall: Abdominal wall is intact without evidence of ventral or inguinal hernias. Musculoskeletal: Normal bone mineralization. No acute fractures. IMPRESSION: Small bowel obstruction. Fluid-filled proximal small bowel measures up to combination distal small bambi wel is decompressed. Probable transition in the left lower quadrant. Solitary right kidney. Hepatorenal cysts. Lateral to the right renal calculi. No hydronephrosis. Fusiform abdominal aortic aneurysm measures 5.5 cm the level of the SMA. Aortic stent graft extends f rom the thoracic aorta to the level of the SMA. Reviewed by: Richar Gomez MD on 06/15/2023 6:05 PM [place] Approved by: Richar Gomez MD on 06/15/2023 6:05 PM [place] Station ID: [id number]
[2023-06-15 19:43] LABS: B. PARAPERTUSSIS- RESP PCR PAN NOT DETECTED; B. PERTUSSIS- RESP PCR PANEL NOT DETECTED; C. PNEUMONIAE- RESP PCR PANEL NOT DETECTED; CORONAVIRUS 229E-RESP PCR NOT DETECTED; CORONAVIRUS HKU1-RESP PCR NOT DETECTED; CORONAVIRUS NL63-RESP PCR NOT DETECTED; CORONAVIRUS OC43-RESP PCR NOT DETECTED; HUMAN METAPNEUMOVIRUS NOT DETECTED; INFLUENZA A- RESP PCR PANEL NOT DETECTED; INFLUENZA B - RESP PCR PANEL NOT DETECTED; M. PNEUMONIAE- RESP PCR PANEL NOT DETECTED; PARAINFLUENZA VIRUS 1 NOT DETECTED; PARAINFLUENZA VIRUS 2 NOT DETECTED; PARAINFLUENZA VIRUS 3 NOT DETECTED; PARAINFLUENZA VIRUS 4 NOT DETECTED; RHINOVIRUS/ENTEROVIRUS NOT DETECTED; RSV- RESP PCR PANEL NOT DETECTED; SARS-CoV-2 -RESP PCR PANEL NOT DETECTED
--- NOTE | 2023-06-15 20:17 | XRAY Report ---
PROCEDURE: Chest for Line Placement INDICATIONS: NGT TECHNIQUE: One view of the chest was acquired. COMPARISON: None. FINDINGS: Surgical changes and devices: Enteric tube courses below the diaphragm with distal tip projecting ov er the stomach. Midline sternotomy wires are present. Extensive aortic endovascular stent is present. . Lungs and pleura: Small right pleural effusion with subjacent atelectasis. No pneumothorax. Mediastinum: Mediastinal contours appear normal. Heart size is normal. Bones and chest wall: No suspicious bony lesions. Overlying soft tissues appear unremarkable. IMPRESSION: Enteric tube courses below the diaphragm with distal tip projecting over the stomach. Smaller pleural effusion with subjacent atelectasis. Reviewed by: Ashley Hanson MD on 06/15/2023 8:15 PM PST Approved by: Ashley Hanson MD on 06/15/2023 8:15 PM PST Station ID: [id number]
[2023-06-15] MEDS ORDERED: SODIUM ZIRCONIUM CYCLOSILICATE 5 GM PACKET PO SCH (23:00)
--- NOTE | 2023-06-15 23:25 | ED Physician Documentation ---
ED Addendum - Addendum Addendum: 06/15/23 23:20 78-year-old Adam Perez who is a dialysis patient and has had his entire aorta replaced has developed a small bowel obstruction. He is left in my care at shift change and a bed has become available at [facility]. I spoke to the hospitalist Vic Daly who recommended an electrocardiogram for evaluation of peaked T waves. The patient's potassium is 5.2 and we do not find peaked T waves avid on his electrocardiogram. He is given a dose of Lokelma. Arrange made for transportation to [facility]. EKG: time 22:56 rate 73 rhythm sinus. findings: Prolonged IL interval .249 LAE, Left anterior fascicular block. LVH, Prolonged QTc 497. SPT 09/26/2018 rate is faster, LVH and prolonged QTc have developed. Peaked T waves are not present. Impression: small bowel obstruction, renal failure, hyperkalemia. Plan: [facility] to acute care hospital capable of dialysis for continued care. NG tube placed, Lokelma administered. Transfer to [facility] with Dr. Vic Willson accepting 06/15/23 23:25 06/15/23 23:26
[2023-06-16 00:38] VITALS: BP 142/64; O2SAT 95
== END 2023-06-16 00:37 | disposition short-term general hospital (02) ==
LOC: ED 17:09
DX: K56.609 Unspecified intestinal obstruction, unspecified as to partial versus complete obstruction (principal); I12.0 Hypertensive chronic kidney disease with stage 5 chronic kidney disease or end stage renal disease; N18.6 End stage renal disease; Z99.2 Dependence on renal dialysis; E87.5 Hyperkalemia; Z90.5 Acquired absence of kidney; Z85.528 Personal history of other malignant neoplasm of kidney; Z79.899 Other long term (current) drug therapy; Z79.82 Long term (current) use of aspirin
CPT/HCPCS: 36415; 80053; 83690; 85025; 85610; 87633; 93005; 96360; 96361; 99285